=== PATIENT | male | born 1990 | race Caucasian/White ===

== ENCOUNTER 2016-03-08 18:49 | Emergency (ER) | payer OTHER ==
[2016-03-08] MEDS ORDERED: ONDANSETRON 4MG/2ML VIAL (J2405) As Ordered ONE (20:47)
[2016-03-08] MEDS ORDERED: MORPHINE 4 MG/ML 1ML SYRINGE As Ordered ONE (20:47)
[2016-03-08 21:07] LABS: BASO % 0.3 % (0.0-1.0); EOS % 0.5 % (0.0-3.0); LARGE UNSTAINED CELL # 0.1 K/mm3 (0.0-0.4); LYMPH # 1.7 K/mm3 (1.5-6.5); LYMPH % 18.8 % (24.0-44.0); MEAN CORPUSCULAR HEMOGLOBIN 28.2 pg (27.0-33.0); MEAN CORPUSCULAR VOLUME 82.8 fl (80.0-96.0); MONO # 0.3 K/mm3 (0.0-0.8); MONO % 3.7 % (0.0-5.0); NEUTROPHILS % 75.7 % (36.0-66.0); PLATELET COUNT, AUTOMATED 220 k/mm3 (150-450); RED CELL DISTRIBUTION WIDTH 12.6 % (11.5-14.5); WHITE BLOOD COUNT 9.2 K/mm3 (4.0-10.0)
[2016-03-08 21:28] LABS: ANION GAP 11 MEQ/L (8-16); BLOOD UREA NITROGEN 12 MG/DL (7-18); CALCIUM LEVEL 9.4 MG/DL (8.5-10.1); CARBON DIOXIDE LEVEL 24 MEQ/L (21-32); CHLORIDE LEVEL 105 MEQ/L (98-107); CREATININE FOR GFR 1.17 MG/DL (0.70-1.30); GLOMERULAR FILTRATION RATE > 60.0 (>60); GLUCOSE, FASTING 96 MG/DL (70-105); POTASSIUM SERUM 4.1 MEQ/L (3.5-5.1); SODIUM LEVEL 140 MEQ/L (136-145)
--- NOTE | 2016-03-08 23:11 | EDDOCDS ---
Physician Documentation [facility] Name: Xu Larios Age: 25 yrs Sex: Male : 1990 Arrival Date: 03/08/2016 Time: 18:49 Bed I5 / M5 [facility] Disposition: 03/08/16 23:03 Discharged to Home/Self Care. Impression: Intervertebral disc disorders with radiculopathy, thoracic region. - Condition is Stable. - Discharge Instructions: Herniated Disk, Thoracic Strain. - Prescriptions for Tylenol- Codeine #3 300-30 mg Oral Tablet - take 1 tablet by ORAL route every 6 hours As needed MDD: 4 tabs; 30 tablet. - Medication Reconciliation, Local Pharmacy Hours form. - Follow [facility]: [facility] [place]; When: Call to arrange an appointment; Reason: Recheck today's complaints, Continuance of care. - Problem is new. - Symptoms are unchanged. Historical: - Allergies: no known allergies; - Home Meds: 1. Fish Oil Oral 1000 mg daily 2. gabapentin 800 mg oral tab 3 times per day 3. vitamin B2 1 tablet twice daily 4. Vitamin D3 1,000 unit oral tab twice a day - PMHx: chronic back pain; herniated discs; Hypertension; - PSHx: Knee surgery- Left; - Social history: Smoking status: Patient uses tobacco products, current every day smoker. No barriers to communication noted, The patient speaks fluent Azeri, Speaks appropriately for age. - Family history: Not pertinent. - : The pt / caregiver states he / she is not on anticoagulants. Home medication list is obtained from the patient. - Exposure Risk Screening:: None identified. Vital Signs: 03/08 18:51 BP 156 / 85; Pulse 86; Resp 18; Temp 97.4(O); Pulse Ox 100% on R/A; Weight 82.1 kg / dd6 181 lbs (R); Height 5 ft. 7 in. (170.18 cm) (R); Pain 8/10; 22:17 BP 127 / 66; Pulse 82; Resp 20 S; Pulse Ox 99% on R/A; Pain 7/10; ms2 23:07 BP 133 / 81; Pulse 88; Resp 18; Temp 96.8; Pulse Ox 97% ; Pain 7/10; ajs 18:51 Body Mass Index 28.35 (82.10 kg, 170.18 cm) dd6 MDM: 20:35 MRI Screening Tool - Place on chart, inform RN ordered. mo1 20:35 IV Saline Lock ordered. mo1 20:35 morphine 4 mg IVP once ordered. mo1 20:35 Ondansetron 4 mg IVP once ordered. mo1 20:36 -MRI-Spine, Thoracic with contrast Ordered. EDMS 20:36 CBC with Diff Ordered. EDMS 20:36 BMP Ordered. EDMS 20:42 Financial registration complete. gb 20:43 MRI Screening Tool - Place on chart, inform RN complete. ajs 20:48 [place] [place] Payment Agreement was scanned into [employer] and attached to record. gb 21:35 BMP Reviewed. mo1 21:35 CBC with Diff Reviewed. mo1 21:49 Diazepam 5 mg IVP once ordered. mo1 Administered Medications: 21:01 Drug: Ondansetron 4 mg [ondansetron HCl 2 mg/mL intravenous solution (2 mL)] Route: ms18 IVP; Site: left antecubital; 21:02 Drug: morphine 4 mg [morphine 4 mg/mL intravenous cartridge (1 mL)] Route: IVP; Site: ms18 left antecubital; 22:08 Drug: Diazepam 5 mg [diazepam 5 mg/mL injection syringe (1 mL)] Route: IVP; Site: left ms2 antecubital; Signatures: Dispatcher [employer] EDMS Ashanti Virgen, Anca Bowens RN RN iris3 Kendra Thacker Michael, PA PA mo1 Angela Beebe RN RN ms18 Jame Meyers RN RN nn1 Devyn Chen RN ms2 The chart was reviewed and I authenticate all verbal orders and agree with the evaluation and treatment provided.Attachments: 20:48 [facility] Payment Agreement gb MTDD
--- NOTE | 2016-03-08 23:11 | EDDOCDS ---
Nurse's Notes [facility] Name: Xu Larios Age: 25 yrs Sex: Male : 1990 Arrival Date: 03/08/2016 Time: 18:49 Bed I5 / M5 [facility] Diagnosis: Intervertebral disc disorders with radiculopathy, thoracic region Presentation: 03/08 18:53 Presenting complaint: Patient states: severe mid back pain. Had injections today at [facility]. Adult Sepsis Screening: The patient does not have new or worsening altered mentation. Patient's respiratory rate is less than 22. Systolic blood pressure is greater than 100. Patient has a qSOFA score of 0- Negative Sepsis Screen. Suicide/Homicide risk assessment- the patient denies having any suicidal and/or homicidal ideations and does not present with any other emotional, behavioral or mental health complaints. 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 Transition of care: patient was received from Dr Guevara. 18:53 Acuity: KIM Level 4 kr3 18:53 Method Of Arrival: Walkin/Carried/Asstd kr3 Triage Assessment: 18:55 General: Appears uncomfortable, Behavior is appropriate for age, cooperative. Pain: kr3 Location: mid back area Pain currently is 8 out of 10 on a pain scale. HIV screening NA for this visit Offered previously. Neurological: Level of Consciousness is awake, alert. Respiratory: Respiratory effort is even, unlabored. Derm: Skin is normal. Musculoskeletal: Range of motion intact in all extremities. Historical: - Allergies: no known allergies; - Home Meds: 1. Fish Oil Oral 1000 mg daily 2. gabapentin 800 mg oral tab 3 times per day 3. vitamin B2 1 tablet twice daily 4. Vitamin D3 1,000 unit oral tab twice a day - PMHx: chronic back pain; herniated discs; Hypertension; - PSHx: Knee surgery- Left; - Social history: Smoking status: Patient uses tobacco products, current every day smoker. No barriers to communication noted, The patient speaks fluent [place] Citizen, Speaks appropriately for age. - Family history: Not pertinent. - : The pt / caregiver states he / she is not on anticoagulants. Home medication list is obtained from the patient. - Exposure Risk Screening:: None identified. Screenin:02 Screening information is obtained from the patient. Fall risk: No risks identified. ms18 Assistance ADL's: requires no assistance with activities of daily living. Abuse/DV Screen: The patient / caregiver reports he/she is: not in a situation that causes fear, pain or injury. Nutritional screening: No deficits noted. Advance Directives: There is no living will. home support is adequate. Assessment: 21:02 General: Appears in no apparent distress, uncomfortable, Behavior is appropriate for ms18 age, cooperative, pleasant. Pain: Location: back and mid back area Pain currently is 8 out of 10 on a pain scale. Neurological: Level of Consciousness is awake, alert, obeys commands, Oriented to person, place, time. Respiratory: No deficits noted. Derm: Skin is pink, warm & dry. Musculoskeletal: cervical spine is non-tender. Range of motion intact in all extremities. 22:16 Adult Sepsis Screening: The patient does not have new or worsening altered mentation. ms2 Patient's respiratory rate is less than 22. Systolic blood pressure is greater than 100. Patient has a qSOFA score of 0- Negative Sepsis Screen. General: Appears medicated for pain. Neurological: Level of Consciousness is awake, alert, obeys commands. Respiratory: Airway is patent Respiratory effort is even, unlabored, Respiratory pattern is regular, symmetrical. Derm: Skin is pink, warm & dry. Musculoskeletal: Range of motion intact in all extremities. Vital Signs: 18:51 BP 156 / 85; Pulse 86; Resp 18; Temp 97.4(O); Pulse Ox 100% on R/A; Weight 82.1 kg (R); dd6 Height 5 ft. 7 in. (170.18 cm) (R); Pain 8/10; 22:17 BP 127 / 66; Pulse 82; Resp 20 S; Pulse Ox 99% on R/A; Pain 7/10; ms2 23:07 BP 133 / 81; Pulse 88; Resp 18; Temp 96.8; Pulse Ox 97% ; Pain 7/10; ajs 18:51 Body Mass Index 28.35 (82.10 kg, 170.18 cm) dd6 Vitals: 18:51 Log In Time: March 08, 2016 at 18:49. dd6 ED Course: 18:50 Patient visited by Eriberto Turk, IQRA. dd6 18:50 Patient moved to Waiting dd6 18:[address] [facility] is Private Physician. dd6 18:52 Patient moved to Pre RCE dd6 18:54 Triage Initiated kr3 19:56 Patient moved to Triage 1 mdr 20:03 Patient visited by Nicole Lovell,DANIEL. ko2 20:05 Saeed Silva PA is PHCP. mo1 20:05 Petr Burns MD is Attending Physician. mo1 20:16 Patient visited by Saeed Silva PA. mo1 20:36 Patient moved to I5 / M5 ko2 20:48 [facility] Payment Agreement was scanned into [employer] and attached to record. gb 21:01 Patient visited by Angela Beebe RN. ms18 21:01 BMP Sent. ms18 21:01 CBC with Diff Sent. ms18 21:02 The patient / caregiver is instructed regarding the plan of care and ED course. ms18 Accompanied by Significant Other. Property :Personal belongings accompany Pt. 21:02 Inserted saline lock: 18 gauge in left antecubital area and blood collected. The ms18 patient tolerated the procedure well. 21:03 Patient moved to MRI ms18 21:46 Patient visited by Angela Beebe RN. ms18 21:46 Patient moved to I5 / M5 ms18 22:15 Patient visited by Devyn Chen,DANIEL. ms2 22:17 The patient / caregiver is instructed regarding the plan of care and ED course. ms2 22:17 IV is patent, is intact, is free of redness or swelling. solution is infusing as ms2 ordered. No procedures done that require assistance. 23:[address] [facility] is Referral Physician. mo1 23:08 Patient visited by Kendra Thacker. ajs Administered Medications: 21:01 Drug: Ondansetron 4 mg [ondansetron HCl 2 mg/mL intravenous solution (2 mL)] Route: ms18 IVP; Site: left antecubital; 21:02 Drug: morphine 4 mg [morphine 4 mg/mL intravenous cartridge (1 mL)] Route: IVP; Site: ms18 left antecubital; 22:08 Drug: Diazepam 5 mg [diazepam 5 mg/mL injection syringe (1 mL)] Route: IVP; Site: left ms2 antecubital; Order Results: Lab Order: CBC with Diff; SPEC'M 03/08/16 20:57 Test: WHITE BLOOD COUNT; Value: 9.2; Range: 4.0-10.0; Units: K/mm3; Status: F Test: RED BLOOD COUNT; Value: 5.82; Range: 4.30-6.10; Units: M/mm3; Status: F Test: HEMOGLOBIN; Value: 16.4; Range: 14.0-18.0; Units: g/dl; Status: F Test: HEMATOCRIT; Value: 48.2; Range: 42.0-52.0; Units: %; Status: F Test: MEAN CORPUSCULAR VOLUME; Value: 82.8; Range: 80.0-96.0; Units: fl; Status: F Test: MEAN CORPUSCULAR HEMOGLOBIN; Value: 28.2; Range: 27.0-33.0; Units: pg; Status: F Test: MEAN CORPUSCULAR HGB CONC; Value: 34.0; Range: 32.0-36.5; Units: g/dl; Status: F Test: RED CELL DISTRIBUTION WIDTH; Value: 12.6; Range: 11.5-14.5; Units: %; Status: F Test: PLATELET COUNT, AUTOMATED; Value: 220; Range: 150-450; Units: k/mm3; Status: F Test: NEUTROPHILS %; Value: 75.7; Range: 36.0-66.0; Abnormal: Above high normal; Units: %; Status: F Test: LYMPH %; Value: 18.8; Range: 24.0-44.0; Abnormal: Below low normal; Units: %; Status: F Test: MONO %; Value: 3.7; Range: 0.0-5.0; Units: %; Status: F Test: EOS %; Value: 0.5; Range: 0.0-3.0; Units: %; Status: F Test: BASO %; Value: 0.3; Range: 0.0-1.0; Units: %; Status: F Test: LARGE UNSTAINED CELL %; Value: 1.0; Range: 0.0-4.0; Units: %; Status: F Test: NEUTROPHILS #; Value: 7.0; Range: 1.8-7.7; Units: K/mm3; Status: F Test: LYMPH #; Value: 1.7; Range: 1.5-6.5; Units: K/mm3; Status: F Test: MONO #; Value: 0.3; Range: 0.0-0.8; Units: K/mm3; Status: F Test: EOS #; Value: 0.0; Range: 0.0-0.50; Units: K/mm3; Status: F Test: BASO #; Value: 0.0; Range: 0.0-0.2; Units: K/mm3; Status: F Test: LARGE UNSTAINED CELL #; Value: 0.1; Range: 0.0-0.4; Units: K/mm3; Status: F Lab Order: [facility]; SPEC'M 03/08/16 20:57 Test: GLUCOSE, FASTING; Value: 96; Range: 70-105; Units: MG/DL; Status: F Test: BLOOD UREA NITROGEN; Value: 12; Range: 7-18; Units: MG/DL; Status: F Test: CREATININE FOR GFR; Value: 1.17; Range: 0.70-1.30; Units: MG/DL; Status: F Test: GLOMERULAR FILTRATION RATE; Value: > 60.0; Range: >60; Status: F Test: SODIUM LEVEL; Value: 140; Range: 136-145; Units: MEQ/L; Status: F Test: POTASSIUM SERUM; Value: 4.1; Range: 3.5-5.1; Units: MEQ/L; Status: F Test: CHLORIDE LEVEL; Value: 105; Range: 98-107; Units: MEQ/L; Status: F Test: CARBON DIOXIDE LEVEL; Value: 24; Range: 21-32; Units: MEQ/L; Status: F Test: ANION GAP; Value: 11; Range: 8-16; Units: MEQ/L; Status: F Test: CALCIUM LEVEL; Value: 9.4; Range: 8.5-10.1; Units: MG/DL; Status: F Test Note: ; Units are mL/min/1.73 m2 Chronic Kidney Disease Staging per NKF: Stage I & II GFR >=60 Normal to Mildly Decreased Stage III GFR 30-59 Moderately Decreased Stage IV GFR 15-29 Severely Decreased Stage V GFR <15 Very Little GFR Left ESRD GFR <15 on [employer] DEAN Outcome: 23:03 Discharge ordered by Provider. mo1 23:05 Discharge Assessment: Patient awake, alert and oriented x 3. No cognitive and/or nn1 functional deficits noted. Patient verbalized understanding of disposition instructions. patient administered narcotics - yes. Pt provided with safe discharge. MRI Study completed. Property :Personal belongings accompany Pt. 23:10 The following High Risk Discharge criteria are identified: None. Discharged to home nn1 ambulatory, with significant other. Condition: stable. 23:10 Patient left the ED. nn1 Signatures: Devyn Chen,RN RN ms2 Ashanti Virgen, Reg Reg gb Anca Teresa RN RN kr3 Eriberto Turk, TECHNICAL SERVICES SPECIALIST TECHNICAL SERVICES SPECIALIST dd6 Kendra Thacker Michael, PA PA mo1 Nicole Lovell,RN RN ko2 Angela Beebe RN RN ms18 Jame MeyersRN RN nn1 Osmar Arenas, TECHNICAL SERVICES SPECIALIST TECHNICAL SERVICES SPECIALIST mdr MTDD
--- NOTE | 2016-03-09 08:21 | REPUSA ---
MRI of the thoracic spine without contrast Clinical statement: Pain status post epidural today. Technique: Multiecho multiplanar MRI images of the thoracic spine were obtained without administratio n of contrast. No comparison is available. Findings: The thoracic vertebral bodies are in satisfactory position and alignment. No fractures or d islocations are demonstrated. The bone marrow appears unremarkable. Intervertebral disc spaces are we ll maintained. There is no evidence of disc herniation or protrusion. The neural foramen are patent. The facet joints are intact. There is minimal soft tissue inflammatory changes in the posterior subcu taneous tissues at the level of T11. The remaining surrounding soft tissues are within normal limits. Impression: Grossy unremarkable MRI examination of the thoracic spine. No evidence of a hematoma is a ppreciated.
--- NOTE | 2016-03-11 00:11 | EDDOCDS ---
Physician Documentation [facility] Name: Xu Larios Age: 25 yrs Sex: Male : 1990 Arrival Date: 03/08/2016 Time: 18:49 Bed I5 / M5 [facility] Disposition: 03/08/16 23:03 Discharged to Home/Self Care. Impression: Intervertebral disc disorders with radiculopathy, thoracic region. - Condition is Stable. - Discharge Instructions: Herniated Disk, Thoracic Strain. - Prescriptions for Tylenol- Codeine #3 300-30 mg Oral Tablet - take 1 tablet by ORAL route every 6 hours As needed MDD: 4 tabs; 30 tablet. - Medication Reconciliation, Local Pharmacy Hours form. - [facility] [place]; When: Call to arrange an appointment; Reason: Recheck today's complaints, Continuance of care. - Problem is new. - Symptoms are unchanged. Historical: - Allergies: no known allergies; - Home Meds: 1. Fish Oil Oral 1000 mg daily 2. gabapentin 800 mg oral tab 3 times per day 3. vitamin B2 1 tablet twice daily 4. Vitamin D3 1,000 unit oral tab twice a day - PMHx: chronic back pain; herniated discs; Hypertension; - PSHx: Knee surgery- Left; - Social history: Smoking status: Patient uses tobacco products, current every day smoker. No barriers to communication noted, The patient speaks fluent [place]arag[place], Speaks appropriately for age. - Family history: Not pertinent. - : The pt / caregiver states he / she is not on anticoagulants. Home medication list is obtained from the patient. - Exposure Risk Screening:: None identified. Vital Signs: 03/08 18:51 BP 156 / 85; Pulse 86; Resp 18; Temp 97.4(O); Pulse Ox 100% on R/A; Weight 82.1 kg / dd6 181 lbs (R); Height 5 ft. 7 in. (170.18 cm) (R); Pain 8/10; 22:17 BP 127 / 66; Pulse 82; Resp 20 S; Pulse Ox 99% on R/A; Pain 7/10; ms2 23:07 BP 133 / 81; Pulse 88; Resp 18; Temp 96.8; Pulse Ox 97% ; Pain 7/10; ajs 18:51 Body Mass Index 28.35 (82.10 kg, 170.18 cm) dd6 MDM: 20:35 MRI Screening Tool - Place on chart, inform RN ordered. mo1 20:35 IV Saline Lock ordered. mo1 20:35 morphine 4 mg IVP once ordered. mo1 20:35 Ondansetron 4 mg IVP once ordered. mo1 20:36 -MRI-Spine, Thoracic with contrast Ordered. EDMS 20:36 CBC with Diff Ordered. EDMS 20:36 BMP Ordered. EDMS 20:42 Financial registration complete. gb 20:43 MRI Screening Tool - Place on chart, inform RN complete. ajs 20:48 [facility] Payment Agreement was scanned into [employer] and attached to record. gb 21:35 BMP Reviewed. mo1 21:35 CBC with Diff Reviewed. mo1 21:49 Diazepam 5 mg IVP once ordered. mo1 03/09 02:26 T-Sheet-- Draft Copy was scanned into [employer] and attached to record. hs2 Administered Medications: 03/08 21:01 Drug: Ondansetron 4 mg [ondansetron HCl 2 mg/mL intravenous solution (2 mL)] Route: ms18 IVP; Site: left antecubital; 21:02 Drug: morphine 4 mg [morphine 4 mg/mL intravenous cartridge (1 mL)] Route: IVP; Site: ms18 left antecubital; 22:08 Drug: Diazepam 5 mg [diazepam 5 mg/mL injection syringe (1 mL)] Route: IVP; Site: left ms2 antecubital; Signatures: Dispatcher [employer] EDMS Ashanti Virgen, Reg Reg gb Anca Teresa RN RN iris3 Kendra Thacker Michael, PA PA mo1 Angela Beebe RN RN ms18 Jame Meyers RN RN nn1 Lora Potter, Reg Reg hs2 Devyn Chen RN ms2 The chart was reviewed and I authenticate all verbal orders and agree with the evaluation and treatment provided.Attachments: 20:48 [facility] Payment Agreement gb 03/09 02:26 T-Sheet-- Draft Copy hs2 Chart Complete MTDD
--- NOTE | 2016-03-11 00:11 | EDDOCDS ---
Physician Documentation [facility] Name: Xu Larios Age: 25 yrs Sex: Male : 1990 Arrival Date: 03/08/2016 Time: 18:49 Bed I5 / M5 [facility] Disposition: 03/08/16 23:03 Discharged to Home/Self Care. Impression: Intervertebral disc disorders with radiculopathy, thoracic region. - Condition is Stable. - Discharge Instructions: Herniated Disk, Thoracic Strain. - Prescriptions for Tylenol- Codeine #3 300-30 mg Oral Tablet - take 1 tablet by ORAL route every 6 hours As needed MDD: 4 tabs; 30 tablet. - Medication Reconciliation, Local Pharmacy Hours form. - [facility]: [facility] [place]; When: Call to arrange an appointment; Reason: Recheck today's complaints, Continuance of care. - Problem is new. - Symptoms are unchanged. Historical: - Allergies: no known allergies; - Home Meds: 1. Fish Oil Oral 1000 mg daily 2. gabapentin 800 mg oral tab 3 times per day 3. vitamin B2 1 tablet twice daily 4. Vitamin D3 1,000 unit oral tab twice a day - PMHx: chronic back pain; herniated discs; Hypertension; - PSHx: Knee surgery- Left; - Social history: Smoking status: Patient uses tobacco products, current every day smoker. No barriers to communication noted, The patient speaks fluent [place]ib[place]ian, Speaks appropriately for age. - Family history: Not pertinent. - : The pt / caregiver states he / she is not on anticoagulants. Home medication list is obtained from the patient. - Exposure Risk Screening:: None identified. Vital Signs: 03/08 18:51 BP 156 / 85; Pulse 86; Resp 18; Temp 97.4(O); Pulse Ox 100% on R/A; Weight 82.1 kg / dd6 181 lbs (R); Height 5 ft. 7 in. (170.18 cm) (R); Pain 8/10; 22:17 BP 127 / 66; Pulse 82; Resp 20 S; Pulse Ox 99% on R/A; Pain 7/10; ms2 23:07 BP 133 / 81; Pulse 88; Resp 18; Temp 96.8; Pulse Ox 97% ; Pain 7/10; ajs 18:51 Body Mass Index 28.35 (82.10 kg, 170.18 cm) dd6 MDM: 20:35 MRI Screening Tool - Place on chart, inform RN ordered. mo1 20:35 IV Saline Lock ordered. mo1 20:35 morphine 4 mg IVP once ordered. mo1 20:35 Ondansetron 4 mg IVP once ordered. mo1 20:36 -MRI-Spine, Thoracic with contrast Ordered. EDMS 20:36 CBC with Diff Ordered. EDMS 20:36 BMP Ordered. EDMS 20:42 Financial registration complete. gb 20:43 MRI Screening Tool - Place on chart, inform RN complete. ajs 20:48 [facility] [place] Payment Agreement was scanned into [employer] and attached to record. gb 21:35 BMP Reviewed. mo1 21:35 CBC with Diff Reviewed. mo1 21:49 Diazepam 5 mg IVP once ordered. mo1 03/09 02:26 T-Sheet-- Draft Copy was scanned into [employer] and attached to record. hs2 Administered Medications: 03/08 21:01 Drug: Ondansetron 4 mg [ondansetron HCl 2 mg/mL intravenous solution (2 mL)] Route: ms18 IVP; Site: left antecubital; 21:02 Drug: morphine 4 mg [morphine 4 mg/mL intravenous cartridge (1 mL)] Route: IVP; Site: ms18 left antecubital; 22:08 Drug: Diazepam 5 mg [diazepam 5 mg/mL injection syringe (1 mL)] Route: IVP; Site: left ms2 antecubital; Signatures: Dispatcher [employer] EDMS Ashanti Virgen, Reg Reg gb Anca Teresa RN RN iris3 Kendra Thacker Michael, PA PA mo1 Angela Beebe RN RN ms18 Jame Meyers RN RN nn1 Lora Potter, Reg Reg hs2 Devyn Chen RN ms2 The chart was reviewed and I authenticate all verbal orders and agree with the evaluation and treatment provided.Attachments: 20:48 [facility] Payment Agreement gb 03/09 02:26 T-Sheet-- Draft Copy hs2 Chart Complete MTDD
--- NOTE | 2016-03-11 00:11 | EDDOCDS ---
Nurse's Notes [facility] Name: Xu Larios Age: 25 yrs Sex: Male : 1990 Arrival Date: 03/08/2016 Time: 18:49 Bed I5 / M5 Private [facility] Diagnosis: Intervertebral disc disorders with radiculopathy, thoracic region Presentation: 03/08 18:53 Presenting complaint: Patient states: severe mid back pain. Had injections today at [address] [place] doctor. Adult Sepsis Screening: The patient does not have new or worsening altered mentation. Patient's respiratory rate is less than 22. Systolic blood pressure is greater than 100. Patient has a qSOFA score of 0- Negative Sepsis Screen. Suicide/Homicide risk assessment- the patient denies having any suicidal and/or homicidal ideations and does not present with any other emotional, behavioral or mental health complaints. 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 Transition of care: patient was received from Dr Guevara. 18:53 Acuity: KIM Level 4 kr3 18:53 Method Of Arrival: Walkin/Carried/Asstd kr3 Triage Assessment: 18:55 General: Appears uncomfortable, Behavior is appropriate for age, cooperative. Pain: kr3 Location: mid back area Pain currently is 8 out of 10 on a pain scale. HIV screening NA for this visit Offered previously. Neurological: Level of Consciousness is awake, alert. Respiratory: Respiratory effort is even, unlabored. Derm: Skin is normal. Musculoskeletal: Range of motion intact in all extremities. Historical: - Allergies: no known allergies; - Home Meds: 1. Fish Oil Oral 1000 mg daily 2. gabapentin 800 mg oral tab 3 times per day 3. vitamin B2 1 tablet twice daily 4. Vitamin D3 1,000 unit oral tab twice a day - PMHx: chronic back pain; herniated discs; Hypertension; - PSHx: Knee surgery- Left; - Social history: Smoking status: Patient uses tobacco products, current every day smoker. No barriers to communication noted, The patient speaks fluent Kos[place], Speaks appropriately for age. - Family history: Not pertinent. - : The pt / caregiver states he / she is not on anticoagulants. Home medication list is obtained from the patient. - Exposure Risk Screening:: None identified. Screenin:02 Screening information is obtained from the patient. Fall risk: No risks identified. ms18 Assistance ADL's: requires no assistance with activities of daily living. Abuse/DV Screen: The patient / caregiver reports he/she is: not in a situation that causes fear, pain or injury. Nutritional screening: No deficits noted. Advance Directives: There is no living will. home support is adequate. Assessment: 21:02 General: Appears in no apparent distress, uncomfortable, Behavior is appropriate for ms18 age, cooperative, pleasant. Pain: Location: back and mid back area Pain currently is 8 out of 10 on a pain scale. Neurological: Level of Consciousness is awake, alert, obeys commands, Oriented to person, place, time. Respiratory: No deficits noted. Derm: Skin is pink, warm & dry. Musculoskeletal: cervical spine is non-tender. Range of motion intact in all extremities. 22:16 Adult Sepsis Screening: The patient does not have new or worsening altered mentation. ms2 Patient's respiratory rate is less than 22. Systolic blood pressure is greater than 100. Patient has a qSOFA score of 0- Negative Sepsis Screen. General: Appears medicated for pain. Neurological: Level of Consciousness is awake, alert, obeys commands. Respiratory: Airway is patent Respiratory effort is even, unlabored, Respiratory pattern is regular, symmetrical. Derm: Skin is pink, warm & dry. Musculoskeletal: Range of motion intact in all extremities. Vital Signs: 18:51 BP 156 / 85; Pulse 86; Resp 18; Temp 97.4(O); Pulse Ox 100% on R/A; Weight 82.1 kg (R); dd6 Height 5 ft. 7 in. (170.18 cm) (R); Pain 8/10; 22:17 BP 127 / 66; Pulse 82; Resp 20 S; Pulse Ox 99% on R/A; Pain 7/10; ms2 23:07 BP 133 / 81; Pulse 88; Resp 18; Temp 96.8; Pulse Ox 97% ; Pain 7/10; ajs 18:51 Body Mass Index 28.35 (82.10 kg, 170.18 cm) dd6 Vitals: 18:51 Log In Time: March 08, 2016 at 18:49. dd6 ED Course: 18:50 Patient visited by Eriberto Turk, IQRA. dd6 18:50 Patient moved to Waiting dd6 18:51 [facility] is Private Physician. dd6 18:52 Patient moved to Pre RCE dd6 18:54 Triage Initiated kr3 19:56 Patient moved to Triage 1 mdr 20:03 Patient visited by Nicole Lovell,DANIEL. ko2 20:05 Saeed Silva PA is PHCP. mo1 20:05 Petr Burns MD is Attending Physician. mo1 20:16 Patient visited by Saeed Silva PA. mo1 20:36 Patient moved to I5 / M5 ko2 20:48 [facility] Payment Agreement was scanned into [place] [facility] and attached to record. gb 21:01 Patient visited by Angela Beebe RN. ms18 21:01 BMP Sent. ms18 21:01 CBC with Diff Sent. ms18 21:02 The patient / caregiver is instructed regarding the plan of care and ED course. ms18 Accompanied by Significant Other. Property :Personal belongings accompany Pt. 21:02 Inserted saline lock: 18 gauge in left antecubital area and blood collected. The ms18 patient tolerated the procedure well. 21:03 Patient moved to MRI ms18 21:46 Patient visited by Angela Beebe RN. ms18 21:46 Patient moved to I5 / M5 ms18 22:15 Patient visited by Devyn Chen,DANIEL. ms2 22:17 The patient / caregiver is instructed regarding the plan of care and ED course. ms2 22:17 IV is patent, is intact, is free of redness or swelling. solution is infusing as ms2 ordered. No procedures done that require assistance. 23:02 [facility] is Referral Physician. mo1 23:08 Patient visited by Kendra Thacker. ajs 03/09 02:26 T-Sheet-- Draft Copy was scanned into [facility] and attached to record. hs2 08:43 -MRI-Spine, Thoracic with contrast Returned. EDMS Administered Medications: 03/08 21:01 Drug: Ondansetron 4 mg [ondansetron HCl 2 mg/mL intravenous solution (2 mL)] Route: ms18 IVP; Site: left antecubital; 21:02 Drug: morphine 4 mg [morphine 4 mg/mL intravenous cartridge (1 mL)] Route: IVP; Site: ms18 left antecubital; 22:08 Drug: Diazepam 5 mg [diazepam 5 mg/mL injection syringe (1 mL)] Route: IVP; Site: left ms2 antecubital; Order Results: Lab Order: CBC with Diff; SPEC'M 03/08/16 20:57 Test: WHITE BLOOD COUNT; Value: 9.2; Range: 4.0-10.0; Units: K/mm3; Status: F Test: RED BLOOD COUNT; Value: 5.82; Range: 4.30-6.10; Units: M/mm3; Status: F Test: HEMOGLOBIN; Value: 16.4; Range: 14.0-18.0; Units: g/dl; Status: F Test: HEMATOCRIT; Value: 48.2; Range: 42.0-52.0; Units: %; Status: F Test: MEAN CORPUSCULAR VOLUME; Value: 82.8; Range: 80.0-96.0; Units: fl; Status: F Test: MEAN CORPUSCULAR HEMOGLOBIN; Value: 28.2; Range: 27.0-33.0; Units: pg; Status: F Test: MEAN CORPUSCULAR HGB CONC; Value: 34.0; Range: 32.0-36.5; Units: g/dl; Status: F Test: RED CELL DISTRIBUTION WIDTH; Value: 12.6; Range: 11.5-14.5; Units: %; Status: F Test: PLATELET COUNT, AUTOMATED; Value: 220; Range: 150-450; Units: k/mm3; Status: F Test: NEUTROPHILS %; Value: 75.7; Range: 36.0-66.0; Abnormal: Above high normal; Units: %; Status: F Test: LYMPH %; Value: 18.8; Range: 24.0-44.0; Abnormal: Below low normal; Units: %; Status: F Test: MONO %; Value: 3.7; Range: 0.0-5.0; Units: %; Status: F Test: EOS %; Value: 0.5; Range: 0.0-3.0; Units: %; Status: F Test: BASO %; Value: 0.3; Range: 0.0-1.0; Units: %; Status: F Test: LARGE UNSTAINED CELL %; Value: 1.0; Range: 0.0-4.0; Units: %; Status: F Test: NEUTROPHILS #; Value: 7.0; Range: 1.8-7.7; Units: K/mm3; Status: F Test: LYMPH #; Value: 1.7; Range: 1.5-6.5; Units: K/mm3; Status: F Test: MONO #; Value: 0.3; Range: 0.0-0.8; Units: K/mm3; Status: F Test: EOS #; Value: 0.0; Range: 0.0-0.50; Units: K/mm3; Status: F Test: BASO #; Value: 0.0; Range: 0.0-0.2; Units: K/mm3; Status: F Test: LARGE UNSTAINED CELL #; Value: 0.1; Range: 0.0-0.4; Units: K/mm3; Status: F Lab Order: [facility]; SPEC'M 03/08/16 20:57 Test: GLUCOSE, FASTING; Value: 96; Range: 70-105; Units: MG/DL; Status: F Test: BLOOD UREA NITROGEN; Value: 12; Range: 7-18; Units: MG/DL; Status: F Test: CREATININE FOR GFR; Value: 1.17; Range: 0.70-1.30; Units: MG/DL; Status: F Test: GLOMERULAR FILTRATION RATE; Value: > 60.0; Range: >60; Status: F Test: SODIUM LEVEL; Value: 140; Range: 136-145; Units: MEQ/L; Status: F Test: POTASSIUM SERUM; Value: 4.1; Range: 3.5-5.1; Units: MEQ/L; Status: F Test: CHLORIDE LEVEL; Value: 105; Range: 98-107; Units: MEQ/L; Status: F Test: CARBON DIOXIDE LEVEL; Value: 24; Range: 21-32; Units: MEQ/L; Status: F Test: ANION GAP; Value: 11; Range: 8-16; Units: MEQ/L; Status: F Test: CALCIUM LEVEL; Value: 9.4; Range: 8.5-10.1; Units: MG/DL; Status: F Test Note: ; Units are mL/min/1.73 m2 Chronic Kidney Disease Staging per NKF: Stage I & II GFR >=60 Normal to Mildly Decreased Stage III GFR 30-59 Moderately Decreased Stage IV GFR 15-29 Severely Decreased Stage V GFR <15 Very Little GFR Left ESRD GFR <15 on INTENSIVE CARE MEDICINE SPECIALIST Radiology Order: -MRI-Spine, Thoracic with contrast Test: -MRI-Spine, Thoracic with contrast REASON FOR EXAMINATION: r/o epidural hematoma t-spine; ; MRI of the thoracic spine without contrast; Clinical statement: Pain status post epidural today.; Technique: Multiecho multiplanar MRI images of the thoracic spine were obtained without administratio; n of contrast.; No comparison is available.; Findings: The thoracic vertebral bodies are in satisfactory position and alignment. No fractures or d; islocations are demonstrated. The bone marrow appears unremarkable. Intervertebral disc spaces are we; ll maintained. There is no evidence of disc herniation or protrusion. The neural foramen are patent.; The facet joints are intact. There is minimal soft tissue inflammatory changes in the posterior subcu; taneous tissues at the level of T11. The remaining surrounding soft tissues are within normal limits.; ; Impression: Grossy unremarkable MRI examination of the thoracic spine. No evidence of a hematoma is a; ppreciated.; ; Outcome: 23:03 Discharge ordered by Provider. mo1 23:05 Discharge Assessment: Patient awake, alert and oriented x 3. No cognitive and/or nn1 functional deficits noted. Patient verbalized understanding of disposition instructions. patient administered narcotics - yes. Pt provided with safe discharge. MRI Study completed. Property :Personal belongings accompany Pt. 23:10 The following High Risk Discharge criteria are identified: None. Discharged to home nn1 ambulatory, with significant other. Condition: stable. 23:10 Patient left the ED. nn1 Signatures: Dispatcher [employer] EDMS Devyn ChenRN RN ms2 Ashanti Virgen, Reg Reg gb Anca TeresaRN RN kr3 Eriberto Turk, EVIDENCE SPECIALIST EVIDENCE SPECIALIST dd6 Kendra Thacker Michael, PA PA mo1 Nicole Lovell RN RN ko2 Angela Beebe RN RN ms18 Jame Meyers RN RN nn1 Osmar Arenas, EVIDENCE SPECIALIST EVIDENCE SPECIALIST mdr Lora Potter, Reg Reg hs2 Chart Complete MTDD
== END 2016-03-08 23:10 | disposition home or self-care (01) ==
LOC: M ED 18:49
DX: M54.12 Radiculopathy, cervical region (principal); M54.14 Radiculopathy, thoracic region; I10 Essential (primary) hypertension; Z98.890 Other specified postprocedural states; G89.29 Other chronic pain; Z79.899 Other long term (current) drug therapy; F17.210 Nicotine dependence, cigarettes, uncomplicated
CPT/HCPCS: 36415; 72147; 80048; 85025; 96374; 96375; 99284; A9576; J2405; J3360

== ENCOUNTER 2016-03-16 20:27 | Emergency (ER) | payer OTHER ==
[2016-03-16] MEDS ORDERED: MORPHINE 4 MG/ML 1ML SYRINGE As Ordered ONE ×3 (21:17→23:59)
[2016-03-16 21:46] LABS: BASO % 0.5 % (0.0-1.0); EOS # 0.1 K/mm3 (0.0-0.50); EOS % 1.5 % (0.0-3.0); LARGE UNSTAINED CELL # 0.1 K/mm3 (0.0-0.4); LARGE UNSTAINED CELL % 1.5 % (0.0-4.0); LYMPH # 3.1 K/mm3 (1.5-6.5); LYMPH % 35.9 % (24.0-44.0); MEAN CORPUSCULAR HEMOGLOBIN 27.9 pg (27.0-33.0); MEAN CORPUSCULAR HGB CONC 33.4 g/dl (32.0-36.5); MEAN CORPUSCULAR VOLUME 83.4 fl (80.0-96.0); MONO # 0.6 K/mm3 (0.0-0.8); MONO % 6.7 % (0.0-5.0); NEUTROPHILS # 4.4 K/mm3 (1.8-7.7); NEUTROPHILS % 53.9 % (36.0-66.0); PLATELET COUNT, AUTOMATED 257 k/mm3 (150-450); RED CELL DISTRIBUTION WIDTH 12.9 % (11.5-14.5); WHITE BLOOD COUNT 8.2 K/mm3 (4.0-10.0)
[2016-03-16 22:05] LABS: ANION GAP 10 MEQ/L (8-16); BLOOD UREA NITROGEN 13 MG/DL (7-18); CALCIUM LEVEL 9.8 MG/DL (8.5-10.1); CARBON DIOXIDE LEVEL 25 MEQ/L (21-32); CHLORIDE LEVEL 104 MEQ/L (98-107); CREATININE FOR GFR 1.15 MG/DL (0.70-1.30); GLOMERULAR FILTRATION RATE > 60.0 (>60); GLUCOSE, FASTING 91 MG/DL (70-105); POTASSIUM SERUM 3.9 MEQ/L (3.5-5.1); SODIUM LEVEL 139 MEQ/L (136-145)
[2016-03-16 22:07] LABS: ERYTHROCYTE SEDIMENTATION RATE 1 mm/hr (0-15)
--- NOTE | 2016-03-17 00:30 | REPUSA ---
CLINICAL HISTORY: Back pain. TECHNIQUE: Fast spin echo T2 and spin echo T1 sequences were obtained in axial and sagittal planes. FINDINGS: There is moderate chronic compression fracture of T8. Associated Schmorl's node formation. There is mild chronic compression fracture of T9. Associated Schmorl's node formation. The visualized osseous elements are intact and in normal alignment with no evidence of fracture or di slocation. The marrow signals are within normal limits. The visualized posterior elements are normal and the thoracic curvature is well maintained. The thoracic cord is of uniform signal intensity witho ut evidence of focal expansion. There is mild multilevel spondylosis. This is demonstrated by disc dehydration. Small anterior osteop hytes are seen. At T1-T2 level, no evidence of significant disk herniation or bulge. Canal and foramina are patent. At T2-T3 level, no evidence of significant disk herniation or bulge. Canal and foramina are patent. At T3-T4 level, no evidence of significant disk herniation or bulge. Canal and foramina are patent. At T4-T5 level, no evidence of significant disk herniation or bulge. Canal and foramina are patent. At T5-T6 level, no evidence of significant disk herniation or bulge. Canal and foramina are patent. At T6-T7 level, no evidence of significant disk herniation or bulge. Canal and foramina are patent. At T7-T8 level, no evidence of significant disk herniation or bulge. Canal and foramina are patent. At T8-T9 level, no evidence of significant disk herniation or bulge. Canal and foramina are patent. At T9-T10 level, no evidence of significant disk herniation or bulge. Canal and foramina are patent. At T10-T11 level, no evidence of significant disk herniation or bulge. Canal and foramina are patent. At T11-T12 level, no evidence of significant disk herniation or bulge. Canal and foramina are patent. IMPRESSION: 1. Mild multilevel spondylosis. 2. No evidence for central canal or foraminal stenosis at any level. 3. Chronic compression fractures of T8 and T9. Thank you for your kind referral of this patient.
[2016-03-17] MEDS ORDERED: MORPHINE 4 MG/ML 1ML SYRINGE As Ordered ONE (00:42)
--- NOTE | 2016-03-17 00:50 | REPUSA ---
CLINICAL HISTORY: Paresthesia after spinal injection. TECHNIQUE: Fast spin echo T2 and spin echo T1 sequences were obtained in axial and sagittal planes. P ost stent images were obtained. FINDINGS: The visualized osseous elements are intact with no evidence of fracture or spondylolisthesis. The mar row signals are within normal limits. There is straightening of normal lordotic curvature, compatible with muscle spasm. The conus medullaris and cauda equina are within normal limits. There is evidence of mild multilevel disc dehydration. Evaluation of individual levels reveals the following: At L5-S1, broad based disk bulge is present. Canal and neural foramina remain patent. At L4-L5, broad based disk bulge is present. Canal and neural foramina remain patent. At L3-L4, there is no disk herniation or bulge. Canal and neural foramina remain patent. At L2-L3, there is no disk herniation or bulge. Canal and neural foramina remain patent. At L1-L2, there is no disk herniation or bulge. Canal and neural foramina remain patent. No evidence of intracanalicular hematoma. IMPRESSION: 1. Straightening of normal lordotic curvature, compatible with muscle spasm. 2. Broad based disk bulges at L4-L5 and L5-S1. Thank you for your kind referral of this patient.
[2016-03-17] MEDS ORDERED: methylPREDNISolone INJ 125 MG/2 ML VIAL (J2930) As Ordered ONE (01:50)
[2016-03-17] MEDS ORDERED: OXYCODONE/APAP 5MG/325MG(BULK) 1 TAB TAB As Ordered ONE (01:51)
--- NOTE | 2016-03-17 02:19 | EDDOCDS ---
Nurse's Notes [facility] Name: Xu Larios Age: 25 yrs Sex: Male : 1990 Arrival Date: 03/16/2016 Time: 20:27 Bed 6 Private MD: TNDinesh MEIER Diagnosis: Low back pain;Radiculopathy, lumbosacral region Presentation: 03/16 20:33 Presenting complaint: Patient states: Had spinal injections last week and came to ED jo3 for severe pain that started after injections. Continuing to have pain and when he sits for extended period of time, everything from the waist down goes numb. Also, when pt stands too quickly, feels a popping sensation and pt will get an erection that has lasted up to an hour. Has had episodes of not being able to void. Acute neurological deficits are present. Mechanism of Injury: No Mechanism of Injury. Adult Sepsis Screening: The patient does not have new or worsening altered mentation. Patient's respiratory rate is less than 22. Systolic blood pressure is greater than 100. Patient has a qSOFA score of 0- Negative Sepsis Screen. Suicide/Homicide risk assessment- the patient denies having any suicidal and/or homicidal ideations and does not present with any other emotional, behavioral or mental health complaints. 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 Transition of care: patient was not received from another setting of care. 20:33 Acuity: KIM Level 3 jo3 20:33 Method Of Arrival: Walkin/Carried/Asstd jo3 20:56 Acute neurological deficits are present. The charge nurse has been notified. The jo3 patient has been moved to a treatment area. Triage Assessment: 20:41 General: Appears in no apparent distress, Behavior is appropriate for age, cooperative. jo3 Pain: Pain currently is 8 out of 10 on a pain scale. At worst was 9.5 out of 10 on a pain scale. HIV screening NA for this visit Offered previously. Neurological: Level of Consciousness is Oriented to. Historical: - Allergies: No known drug Allergies; - Home Meds: 1. Fish Oil Oral 1000 mg daily 2. gabapentin 800 mg Oral tab 3 times per day 3. vitamin B2 1 tablet twice daily 4. Vitamin D3 1,000 unit oral tab twice a day 5. acetaminophen-codeine 325-30 mg Oral cap every 6 hours 6. zolmitriptan 2.5 mg oral tab 1 tab every 8 hours as needed - PMHx: chronic back pain; herniated discs; Hypertension; - PSHx: Knee surgery- Left; - Social history: Smoking status: Patient uses tobacco products, light tobacco smoker. No barriers to communication noted, The patient speaks fluent [place], Speaks appropriately for age. - Family history: Not pertinent. - : The pt / caregiver states he / she is not on anticoagulants. Home medication list is obtained from the patient. - Exposure Risk Screening:: None identified. Screenin/02 00:00 Screening information is obtained from the patient. Fall risk: No risks identified. cf2 Assistance ADL's: requires no assistance with activities of daily living. Abuse/DV Screen: The patient / caregiver reports he/she is: not in a situation that causes fear, pain or injury. Nutritional screening: No deficits noted. Advance Directives: Further advance directive information is declined. home support is adequate. Assessment: 00:00 Adult Sepsis Screening: The patient does not have new or worsening altered mentation. cf2 Patient's respiratory rate is less than 22. Systolic blood pressure is greater than 100. Patient has a qSOFA score of 0- Negative Sepsis Screen. General: Appears in no apparent distress, comfortable, Behavior is appropriate for age, cooperative. Pain: Location: back. Neurological: No deficits noted. Reports dizziness, numbness paresthesias. EENT: No deficits noted. Cardiovascular: No deficits noted. Respiratory: No deficits noted. GI: No deficits noted. : No deficits noted. Derm: No deficits noted. Musculoskeletal: No deficits noted. Injury Description: No known injury. Vital Signs: 03/16 20:29 BP 159 / 99; Pulse 100; Resp 18 S; Temp 97.4(O); Pulse Ox 97% on R/A; Weight 82.1 kg gr2 (R); Height 5 ft. 7 in. (170.18 cm) (R); Pain 6/10; 03/17 00:00 BP 132 / 78; Pulse 88; Resp 18; Temp 98.8; Pulse Ox 99% on R/A; Pain 5/10; cf2 02:17 BP 126 / 82; Pulse 78; Resp 16; Temp 98.0; Pulse Ox 100% on R/A; Pain 3/10; cf2 03/16 20:29 Body Mass Index 28.35 (82.10 kg, 170.18 cm) gr2 Vitals: 03/16 20:29 Log In Time: March 16, 2016 at 20:29. gr2 ED Course: 20:28 Patient visited by Melony Polanco. gr2 20:28 Patient moved to Waiting gr2 20:29 [facility], Dinesh Lloyd is Private Physician. gr2 20:32 Patient visited by Melony Polanco. gr2 20:32 Patient moved to Pre RCE gr2 20:39 Triage Initiated jo3 20:42 Patient visited by Shelby Hammond RN. jo3 20:45 Marcy Vides RN is Primary Nurse. lf1 20:45 Primary Nurse role handed off by Marcy Vides RN cf2 20:45 Ashleigh Calvert RN is Primary Nurse. cf2 20:45 Patient visited by Ashleigh Calvert RN. cf2 20:45 Patient moved to 6 lf1 20:57 Rasheed Wang DO is Attending Physician. mm11 20:57 Patient visited by Rasheed Wang DO. mm11 20:58 Patient visited by Ashleigh Calvert RN. cf2 21:09 Patient visited by Ashleigh Calvert RN. cf2 21:12 Patient visited by Ashleigh Calvert RN. cf2 21:13 Patient visited by Rasheed Wang DO. mm11 21:15 Patient visited by Ashleigh Calvert RN. cf2 21:38 ESR Sent. cf2 21:38 CRP Sent. cf2 21:38 BMP Sent. cf2 21:38 CBC with Diff Sent. cf2 21:47 [facility] Payment Agreement was scanned into [email or web address] and attached to record. zo 21:53 Patient visited by Ashleigh Calvert RN. cf2 21:57 Patient moved to MRI jlm 22:22 Patient visited by Ashleigh Calvert RN. cf2 23:59 Patient visited by Ashleigh Calvert RN. cf2 03/17 00:00 Marcy Vides RN is Primary Nurse. kb5 00:00 Patient moved to 6 kb5 00:00 The patient / caregiver is instructed regarding the plan of care and ED course. Patient cf2 has correct armband on for positive identification. Placed in gown. Bed in low position. Call light in reach. Side rails up X 1. Side rails up X2. Property :Personal belongings accompany Pt. Door closed. Noise minimized. Visitors limited. Lights dimmed. Moved to private room. Oral care given. Verbal reassurance given. Warm blanket given. Pillow given. Head of bed elevated. 00:00 Inserted saline lock: 20 gauge in left hand. cf2 00:29 Patient visited by Ashleigh Calvert RN. cf2 00:35 MRI T SPINE W/O FOLL WITH CON Returned. EDMS 01:10 Patient visited by Ashleigh Calvert RN. cf2 01:11 -MRI-Spine, Lumbar w/o foll by with con Returned. EDMS 01:47 [facility] ([facility]) is Referral Physician. mm11 02:12 Patient visited by Ashleigh Calvert RN. cf2 02:14 Patient visited by Ashleigh Calvert RN. cf2 02:17 Discontinued lock No redness/swelling at site. No procedures done that require cf2 assistance. Administered Medications: 03/16 21:20 Drug: morphine 4 mg [morphine 4 mg/mL intravenous cartridge (1 mL)] Route: IVP; Site: cf2 left antecubital; 21:53 Drug: morphine 4 mg [morphine 4 mg/mL intravenous cartridge (1 mL)] Route: IVP; Site: cf2 left antecubital; 03/17 02:14 Follow up: Response: Pain is decreased cf2 00:00 Drug: morphine 4 mg [morphine 4 mg/mL intravenous cartridge (1 mL)] Route: IVP; Site: cf2 left antecubital; 00:47 Drug: morphine 4 mg [morphine 4 mg/mL intravenous cartridge (1 mL)] Route: IVP; Site: cf2 left antecubital; 02:13 Follow up: Response: Pain is decreased cf2 01:55 Drug: Diazepam 5 mg [diazepam 5 mg/mL injection syringe (1 mL)] Route: IVP; Site: left cf2 antecubital; 02:13 Follow up: Response: Pain is decreased cf2 01:55 Drug: oxyCODONE-acetaminophen 4 pack 1 packets [oxycodone-acetaminophen 5 mg-325 mg cf2 tablet (1 tabs)] {Co-Signature: tm5 (Thais Ennis RN).} Route: PO; 02:14 Follow up: Response: Pt left department before re-evaluation is appropriate cf2 02:12 Drug: Solu-MEDROL 125 mg [Solu-Medrol 500 mg intravenous solution (125 mg)] Route: IVP; cf2 Site: left antecubital; 02:13 Follow up: Response: No significant change. cf2 Order Results: Lab Order: CBC with Diff; SPEC'M 03/16/16 21:35 Test: WHITE BLOOD COUNT; Value: 8.2; Range: 4.0-10.0; Units: K/mm3; Status: F Test: RED BLOOD COUNT; Value: 5.84; Range: 4.30-6.10; Units: M/mm3; Status: F Test: HEMOGLOBIN; Value: 16.3; Range: 14.0-18.0; Units: g/dl; Status: F Test: HEMATOCRIT; Value: 48.7; Range: 42.0-52.0; Units: %; Status: F Test: MEAN CORPUSCULAR VOLUME; Value: 83.4; Range: 80.0-96.0; Units: fl; Status: F Test: MEAN CORPUSCULAR HEMOGLOBIN; Value: 27.9; Range: 27.0-33.0; Units: pg; Status: F Test: MEAN CORPUSCULAR HGB CONC; Value: 33.4; Range: 32.0-36.5; Units: g/dl; Status: F Test: RED CELL DISTRIBUTION WIDTH; Value: 12.9; Range: 11.5-14.5; Units: %; Status: F Test: PLATELET COUNT, AUTOMATED; Value: 257; Range: 150-450; Units: k/mm3; Status: F Test: NEUTROPHILS %; Value: 53.9; Range: 36.0-66.0; Units: %; Status: F Test: LYMPH %; Value: 35.9; Range: 24.0-44.0; Units: %; Status: F Test: MONO %; Value: 6.7; Range: 0.0-5.0; Abnormal: Above high normal; Units: %; Status: F Test: EOS %; Value: 1.5; Range: 0.0-3.0; Units: %; Status: F Test: BASO %; Value: 0.5; Range: 0.0-1.0; Units: %; Status: F Test: LARGE UNSTAINED CELL %; Value: 1.5; Range: 0.0-4.0; Units: %; Status: F Test: NEUTROPHILS #; Value: 4.4; Range: 1.8-7.7; Units: K/mm3; Status: F Test: LYMPH #; Value: 3.1; Range: 1.5-6.5; Units: K/mm3; Status: F Test: MONO #; Value: 0.6; Range: 0.0-0.8; Units: K/mm3; Status: F Test: EOS #; Value: 0.1; Range: 0.0-0.50; Units: K/mm3; Status: F Test: BASO #; Value: 0.0; Range: 0.0-0.2; Units: K/mm3; Status: F Test: LARGE UNSTAINED CELL #; Value: 0.1; Range: 0.0-0.4; Units: K/mm3; Status: F Lab Order: [facility]; SPEC'M 03/16/16 21:35 Test: GLUCOSE, FASTING; Value: 91; Range: 70-105; Units: MG/DL; Status: F Test: BLOOD UREA NITROGEN; Value: 13; Range: 7-18; Units: MG/DL; Status: F Test: CREATININE FOR GFR; Value: 1.15; Range: 0.70-1.30; Units: MG/DL; Status: F Test: GLOMERULAR FILTRATION RATE; Value: > 60.0; Range: >60; Status: F Test: SODIUM LEVEL; Value: 139; Range: 136-145; Units: MEQ/L; Status: F Test: POTASSIUM SERUM; Value: 3.9; Range: 3.5-5.1; Units: MEQ/L; Status: F Test: CHLORIDE LEVEL; Value: 104; Range: 98-107; Units: MEQ/L; Status: F Test: CARBON DIOXIDE LEVEL; Value: 25; Range: 21-32; Units: MEQ/L; Status: F Test: ANION GAP; Value: 10; Range: 8-16; Units: MEQ/L; Status: F Test: CALCIUM LEVEL; Value: 9.8; Range: 8.5-10.1; Units: MG/DL; Status: F Test Note: ; Units are mL/min/1.73 m2 Chronic Kidney Disease Staging per NKF: Stage I & II GFR >=60 Normal to Mildly Decreased Stage III GFR 30-59 Moderately Decreased Stage IV GFR 15-29 Severely Decreased Stage V GFR <15 Very Little GFR Left ESRD GFR <15 on ENGINEERING SYSTEMS ANALYST Lab Order: CRP; SPEC'M 03/16/16 21:35 Test: C REACTIVE PROTEIN QUANTITATIV; Value: < 0.30; Range: 0.00-0.30; Units: MG/DL; Status: F Lab Order: ESR; SPEC'M 03/16/16 21:35 Test: ERYTHROCYTE SEDIMENTATION RATE; Value: 1; Range: 0-15; Units: mm/hr; Status: F Radiology Order: -MRI-Spine, Lumbar w/o foll by with con Test: -MRI-Spine, Lumbar w/o foll by with con REASON FOR EXAMINATION: parethesia after spinal injections; ; CLINICAL HISTORY: Paresthesia after spinal injection.; TECHNIQUE: Fast spin echo T2 and spin echo T1 sequences were obtained in axial and sagittal planes. P; ost stent images were obtained.; FINDINGS:; The visualized osseous elements are intact with no evidence of fracture or spondylolisthesis. The mar; row signals are within normal limits. There is straightening of normal lordotic curvature, compatible; with muscle spasm. The conus medullaris and cauda equina are within normal limits.; There is evidence of mild multilevel disc dehydration.; Evaluation of individual levels reveals the following:; At L5-S1, broad based disk bulge is present. Canal and neural foramina remain patent.; At L4-L5, broad based disk bulge is present. Canal and neural foramina remain patent.; At L3-L4, there is no disk herniation or bulge. Canal and neural foramina remain patent.; At L2-L3, there is no disk herniation or bulge. Canal and neural foramina remain patent.; At L1-L2, there is no disk herniation or bulge. Canal and neural foramina remain patent.; No evidence of intracanalicular hematoma.; IMPRESSION:; 1. Straightening of normal lordotic curvature, compatible with muscle spasm.; 2. Broad based disk bulges at L4-L5 and L5-S1.; Thank you for your kind referral of this patient.; ; Radiology Order: MRI T SPINE W/O FOLL WITH CON Test: MRI T SPINE W/O FOLL WITH CON REASON FOR EXAMINATION: parethesia after spinal injections; ; CLINICAL HISTORY: Back pain.; TECHNIQUE: Fast spin echo T2 and spin echo T1 sequences were obtained in axial and sagittal planes.; FINDINGS:; There is moderate chronic compression fracture of T8. Associated Schmorl's node formation.; There is mild chronic compression fracture of T9. Associated Schmorl's node formation.; The visualized osseous elements are intact and in normal alignment with no evidence of fracture or di; slocation. The marrow signals are within normal limits. The visualized posterior elements are normal; and the thoracic curvature is well maintained. The thoracic cord is of uniform signal intensity witho; ut evidence of focal expansion.; There is mild multilevel spondylosis. This is demonstrated by disc dehydration. Small anterior osteop; hytes are seen.; At T1-T2 level, no evidence of significant disk herniation or bulge. Canal and foramina are patent.; At T2-T3 level, no evidence of significant disk herniation or bulge. Canal and foramina are patent.; At T3-T4 level, no evidence of significant disk herniation or bulge. Canal and foramina are patent.; At T4-T5 level, no evidence of significant disk herniation or bulge. Canal and foramina are patent.; At T5-T6 level, no evidence of significant disk herniation or bulge. Canal and foramina are patent.; At T6-T7 level, no evidence of significant disk herniation or bulge. Canal and foramina are patent.; At T7-T8 level, no evidence of significant disk herniation or bulge. Canal and foramina are patent.; At T8-T9 level, no evidence of significant disk herniation or bulge. Canal and foramina are patent.; At T9-T10 level, no evidence of significant disk herniation or bulge. Canal and foramina are patent.; At T10-T11 level, no evidence of significant disk herniation or bulge. Canal and foramina are patent.; ; At T11-T12 level, no evidence of significant disk herniation or bulge. Canal and foramina are patent.; ; IMPRESSION:; 1. Mild multilevel spondylosis.; 2. No evidence for central canal or foraminal stenosis at any level.; 3. Chronic compression fractures of T8 and T9.; Thank you for your kind referral of this patient.; ; Outcome: 00:00 Discharge Assessment: Patient awake, alert and oriented x 3. No cognitive and/or cf2 functional deficits noted. Patient verbalized understanding of disposition instructions. Patient awake and alert. Oriented to person, place and time. patient administered narcotics - yes. Pt provided with safe discharge. The following High Risk Discharge criteria are identified: None. Discharged to home via wheelchair, with significant other. Condition: good Condition: stable Condition: improved. Discharge instructions given to patient, significant other, Instructed on discharge instructions, medication usage, Demonstrated understanding of instructions, medications, Prescriptions given X 3. MRI Study completed. 01:48 Discharge ordered by Provider. mm11 02:18 Patient left the ED. cf2 Signatures: Dispatcher [employer] EDMS Shelby Hammond,RN RN jo3 Loly Miranda Kristopher, BOLT LABELER BOLT LABELER kb5 Jasmina Grimaldo RN RN lf1 Rasheed Wang DO DO mm11 Melony Polanco gr2 Reanna Prasad, Financial Service Professional Unit Ashleigh Wise,RN RN cf2 Thais Ennis RN tm5 MTDD
--- NOTE | 2016-03-17 02:19 | EDDOCDS ---
Physician Documentation [facility] Name: Xu Larios Age: 25 yrs Sex: Male : 1990 Arrival Date: 03/16/2016 Time: 20:27 Bed 6 Private MD: Dinesh GRANGER Disposition: 03/17/16 01:48 Discharged to Home/Self Care. Impression: Low back pain, Radiculopathy, lumbosacral region. - Condition is Stable. - Discharge Instructions: Back Pain, Adult, Lumbosacral Radiculopathy, Musculoskeletal Pain, Back Pain, Adult, [id number]. - Prescriptions for Percocet 5- 325 mg Oral Tablet - take 1 tablet by ORAL route every 6 hours As needed MDD: 4 tabs; 20 tablet. Valium 5 mg Oral Tablet - take 1 tablet by ORAL route every 8 hours As needed MDD: 3 tabs; 20 tablet. Prednisone 20 mg Oral Tablet - take 2 tablets by ORAL route once daily for 5 days; 10 tablet. - Local Pharmacy Hours, Medication Reconciliation form. - Follow up: [facility] ([facility]); When: 1 - 2 days; Reason: Continuance of care. - Problem is an ongoing problem. - Symptoms are unchanged. Historical: - Allergies: No known drug Allergies; - Home Meds: 1. Fish Oil Oral 1000 mg daily 2. gabapentin 800 mg Oral tab 3 times per day 3. vitamin B2 1 tablet twice daily 4. Vitamin D3 1,000 unit oral tab twice a day 5. acetaminophen-codeine 325-30 mg Oral cap every 6 hours 6. zolmitriptan 2.5 mg oral tab 1 tab every 8 hours as needed - PMHx: chronic back pain; herniated discs; Hypertension; - PSHx: Knee surgery- Left; - Social history: Smoking status: Patient uses tobacco products, light tobacco smoker. No barriers to communication noted, The patient speaks fluent [place], Speaks appropriately for age. - Family history: Not pertinent. - : The pt / caregiver states he / she is not on anticoagulants. Home medication list is obtained from the patient. - Exposure Risk Screening:: None identified. Vital Signs: 03/16 20:29 BP 159 / 99; Pulse 100; Resp 18 S; Temp 97.4(O); Pulse Ox 97% on R/A; Weight 82.1 kg / gr2 181 lbs (R); Height 5 ft. 7 in. (170.18 cm) (R); Pain 6/10; 03/17 00:00 BP 132 / 78; Pulse 88; Resp 18; Temp 98.8; Pulse Ox 99% on R/A; Pain 5/10; cf2 02:17 BP 126 / 82; Pulse 78; Resp 16; Temp 98.0; Pulse Ox 100% on R/A; Pain 3/10; cf2 02 20:29 Body Mass Index 28.35 (82.10 kg, 170.18 cm) gr2 MDM: 03/16 21:14 IV Saline Lock ordered. mm11 21:14 morphine 4 mg IVP every 30 minutes; Document pain score/vitals after each dose (Hold if mm11 SBP < 90mmHg) x2 ordered. 21:14 MRI Screening Tool - Place on chart, inform RN ordered. mm11 21:15 CBC with Diff Ordered. EDMS 21:15 BMP Ordered. EDMS 21:15 CRP Ordered. EDMS 21:15 ESR Ordered. EDMS 21:15 -MRI-Spine, Lumbar w/o foll by with con Ordered. EDMS 21:20 MRI Screening Tool - Place on chart, inform RN complete. kb5 21:45 Financial registration complete. zo 21:47 [facility] Payment Agreement was scanned into [employer] and attached to record. zo 22:24 MRI T SPINE W/O FOLL WITH CON Ordered. EDMS 22:58 CBC with Diff Reviewed. mm11 22:58 BMP Reviewed. mm11 22:58 CRP Reviewed. mm11 22:58 ESR Reviewed. mm11 23:56 morphine 4 mg IVP every 30 minutes; Document pain score/vitals after each dose (Hold if mm11 SBP < 90mmHg) x2 ordered. 03/17 01:47 Solu-MEDROL 125 mg IVP once ordered. mm11 01:47 Diazepam 5 mg IVP once ordered. mm11 01:47 oxyCODONE-acetaminophen 4 pack 5 mg-325 mg 1 packets PO once; Dispense with pt, take as mm11 per instruction on package ordered. Administered Medications: 03/16 21:20 Drug: morphine 4 mg [morphine 4 mg/mL intravenous cartridge (1 mL)] Route: IVP; Site: cf2 left antecubital; 21:53 Drug: morphine 4 mg [morphine 4 mg/mL intravenous cartridge (1 mL)] Route: IVP; Site: cf2 left antecubital; 02 02:14 Follow up: Response: Pain is decreased cf2 00:00 Drug: morphine 4 mg [morphine 4 mg/mL intravenous cartridge (1 mL)] Route: IVP; Site: cf2 left antecubital; 00:47 Drug: morphine 4 mg [morphine 4 mg/mL intravenous cartridge (1 mL)] Route: IVP; Site: cf2 left antecubital; 02:13 Follow up: Response: Pain is decreased cf2 01:55 Drug: Diazepam 5 mg [diazepam 5 mg/mL injection syringe (1 mL)] Route: IVP; Site: left cf2 antecubital; 02:13 Follow up: Response: Pain is decreased cf2 01:55 Drug: oxyCODONE-acetaminophen 4 pack 1 packets [oxycodone-acetaminophen 5 mg-325 mg cf2 tablet (1 tabs)] {Co-Signature: tm5 (Thais Ennis RN).} Route: PO; 02:14 Follow up: Response: Pt left department before re-evaluation is appropriate cf2 02:12 Drug: Solu-MEDROL 125 mg [Solu-Medrol 500 mg intravenous solution (125 mg)] Route: IVP; cf2 Site: left antecubital; 02:13 Follow up: Response: No significant change. cf2 Signatures: Dispatcher [employer] EDShelby Mcrae RN RN jo3 Loly Miranda Kristopher, METAL SHEET ROLLER OPERATOR METAL SHEET ROLLER OPERATOR kb5 Rasheed Wang DO DO mm11 Ashleigh Calvert RN RN cf2 Thais Ennis RN tm5 The chart was reviewed and I authenticate all verbal orders and agree with the evaluation and treatment provided.Corrections: (The following items were deleted from the chart) 03/16 22:24 21:16 MRI-Spine,Thoracic without con+MR ordered. EDMS EDMS 22:24 22:03 MRI-Spine, Thoracic with con+MR ordered. EDMS EDMS 22:24 22:04 MRI-Spine,Thoracic without con+MR ordered. EDMS EDMS Attachments: 21:47 [facility] Payment Agreement zo MTDD
--- NOTE | 2016-03-19 03:19 | EDDOCDS ---
Physician Documentation [facility] Name: Xu Larios Age: 25 yrs Sex: Male : 1990 Arrival Date: 03/16/2016 Time: 20:27 Bed 6 Private MD: Dinesh GRANGER Disposition: 03/17/16 01:48 Discharged to Home/Self Care. Impression: Low back pain, Radiculopathy, lumbosacral region. - Condition is Stable. - Discharge Instructions: Back Pain, Adult, Lumbosacral Radiculopathy, Musculoskeletal Pain, Back Pain, Adult, [id number]. - Prescriptions for Percocet 5- 325 mg Oral Tablet - take 1 tablet by ORAL route every 6 hours As needed MDD: 4 tabs; 20 tablet. Valium 5 mg Oral Tablet - take 1 tablet by ORAL route every 8 hours As needed MDD: 3 tabs; 20 tablet. Prednisone 20 mg Oral Tablet - take 2 tablets by ORAL route once daily for 5 days; 10 tablet. - Local Pharmacy Hours, Medication Reconciliation form. - Follow up: [facility] ([facility]); When: 1 - 2 days; Reason: Continuance of care. - Problem is an ongoing problem. - Symptoms are unchanged. Historical: - Allergies: No known drug Allergies; - Home Meds: 1. Fish Oil Oral 1000 mg daily 2. gabapentin 800 mg Oral tab 3 times per day 3. vitamin B2 1 tablet twice daily 4. Vitamin D3 1,000 unit oral tab twice a day 5. acetaminophen-codeine 325-30 mg Oral cap every 6 hours 6. zolmitriptan 2.5 mg oral tab 1 tab every 8 hours as needed - PMHx: chronic back pain; herniated discs; Hypertension; - PSHx: Knee surgery- Left; - Social history: Smoking status: Patient uses tobacco products, light tobacco smoker. No barriers to communication noted, The patient speaks fluent Macedonian, Speaks appropriately for age. - Family history: Not pertinent. - : The pt / caregiver states he / she is not on anticoagulants. Home medication list is obtained from the patient. - Exposure Risk Screening:: None identified. Vital Signs: 03/16 20:29 BP 159 / 99; Pulse 100; Resp 18 S; Temp 97.4(O); Pulse Ox 97% on R/A; Weight 82.1 kg / gr2 181 lbs (R); Height 5 ft. 7 in. (170.18 cm) (R); Pain 6/10; 03/17 00:00 BP 132 / 78; Pulse 88; Resp 18; Temp 98.8; Pulse Ox 99% on R/A; Pain 5/10; cf2 02:17 BP 126 / 82; Pulse 78; Resp 16; Temp 98.0; Pulse Ox 100% on R/A; Pain 3/10; cf2 02 20:29 Body Mass Index 28.35 (82.10 kg, 170.18 cm) gr2 MDM: 03/16 21:14 IV Saline Lock ordered. mm11 21:14 morphine 4 mg IVP every 30 minutes; Document pain score/vitals after each dose (Hold if mm11 SBP < 90mmHg) x2 ordered. 21:14 MRI Screening Tool - Place on chart, inform RN ordered. mm11 21:15 CBC with Diff Ordered. EDMS 21:15 BMP Ordered. EDMS 21:15 CRP Ordered. EDMS 21:15 ESR Ordered. EDMS 21:15 -MRI-Spine, Lumbar w/o foll by with con Ordered. EDMS 21:20 MRI Screening Tool - Place on chart, inform RN complete. kb5 21:45 Financial registration complete. zo 21:47 [facility] Payment Agreement was scanned into [employer] and attached to record. zo 22:24 MRI T SPINE W/O FOLL WITH CON Ordered. EDMS 22:58 CBC with Diff Reviewed. mm11 22:58 BMP Reviewed. mm11 22:58 CRP Reviewed. mm11 22:58 ESR Reviewed. mm11 23:56 morphine 4 mg IVP every 30 minutes; Document pain score/vitals after each dose (Hold if mm11 SBP < 90mmHg) x2 ordered. 03/17 01:47 Solu-MEDROL 125 mg IVP once ordered. mm11 01:47 Diazepam 5 mg IVP once ordered. mm11 01:47 oxyCODONE-acetaminophen 4 pack 5 mg-325 mg 1 packets PO once; Dispense with pt, take as mm11 per instruction on package ordered. 12:50 T-Sheet-- Draft Copy was scanned into io[employer] and attached to record. gb Administered Medications: 03/16 21:20 Drug: morphine 4 mg [morphine 4 mg/mL intravenous cartridge (1 mL)] Route: IVP; Site: cf2 left antecubital; 21:53 Drug: morphine 4 mg [morphine 4 mg/mL intravenous cartridge (1 mL)] Route: IVP; Site: cf2 left antecubital; 03/17 02:14 Follow up: Response: Pain is decreased cf2 00:00 Drug: morphine 4 mg [morphine 4 mg/mL intravenous cartridge (1 mL)] Route: IVP; Site: cf2 left antecubital; 00:47 Drug: morphine 4 mg [morphine 4 mg/mL intravenous cartridge (1 mL)] Route: IVP; Site: cf2 left antecubital; 02:13 Follow up: Response: Pain is decreased cf2 01:55 Drug: Diazepam 5 mg [diazepam 5 mg/mL injection syringe (1 mL)] Route: IVP; Site: left cf2 antecubital; 02:13 Follow up: Response: Pain is decreased cf2 01:55 Drug: oxyCODONE-acetaminophen 4 pack 1 packets [oxycodone-acetaminophen 5 mg-325 mg cf2 tablet (1 tabs)] {Co-Signature: [id number] (Thais Ennis RN).} Route: PO; 02:14 Follow up: Response: Pt left department before re-evaluation is appropriate cf2 02:12 Drug: Solu-MEDROL 125 mg [Solu-Medrol 500 mg intravenous solution (125 mg)] Route: IVP; cf2 Site: left antecubital; 02:13 Follow up: Response: No significant change. cf2 Signatures: Dispatcher Med[employer] EDMS Ashanti Virgen, Zoran Reg Shelby NavarroRN RN jo3 Loly Miranda Kristopher, WELDING ROD COATER WELDING ROD COATER kb5 Rasheed Wang DO DO mm11 Ashleigh CalvertRN RN cf2 Thais Ennis RN tm5 The chart was reviewed and I authenticate all verbal orders and agree with the evaluation and treatment provided.Corrections: (The following items were deleted from the chart) 03/16 22:24 21:16 MRI-Spine,Thoracic without con+MR ordered. EDMS EDMS : 22:03 MRI-Spine, Thoracic with con+MR ordered. EDMS EDMS 22:24 22:04 MRI-Spine,Thoracic without con+MR ordered. EDMS EDMS Attachments: 21:47 [facility] [place] Payment Agreement zo 03/17 12:50 T-Sheet-- Draft Copy gb Chart Complete MTDD
--- NOTE | 2016-03-19 03:19 | EDDOCDS ---
Physician Documentation [facility] Name: Xu Larios Age: 25 yrs Sex: Male : 1990 Arrival Date: 03/16/2016 Time: 20:27 Bed 6 Private MD: Dinesh GRANGER Disposition: 03/17/16 01:48 Discharged to Home/Self Care. Impression: Low back pain, Radiculopathy, lumbosacral region. - Condition is Stable. - Discharge Instructions: Back Pain, Adult, Lumbosacral Radiculopathy, Musculoskeletal Pain, Back Pain, Adult, [id number]. - Prescriptions for Percocet 5- 325 mg Oral Tablet - take 1 tablet by ORAL route every 6 hours As needed MDD: 4 tabs; 20 tablet. Valium 5 mg Oral Tablet - take 1 tablet by ORAL route every 8 hours As needed MDD: 3 tabs; 20 tablet. Prednisone 20 mg Oral Tablet - take 2 tablets by ORAL route once daily for 5 days; 10 tablet. - Local Pharmacy Hours, Medication Reconciliation form. - Follow up: [facility] ([facility]); When: 1 - 2 days; Reason: Continuance of care. - Problem is an ongoing problem. - Symptoms are unchanged. Historical: - Allergies: No known drug Allergies; - Home Meds: 1. Fish Oil Oral 1000 mg daily 2. gabapentin 800 mg Oral tab 3 times per day 3. vitamin B2 1 tablet twice daily 4. Vitamin D3 1,000 unit oral tab twice a day 5. acetaminophen-codeine 325-30 mg Oral cap every 6 hours 6. zolmitriptan 2.5 mg oral tab 1 tab every 8 hours as needed - PMHx: chronic back pain; herniated discs; Hypertension; - PSHx: Knee surgery- Left; - Social history: Smoking status: Patient uses tobacco products, light tobacco smoker. No barriers to communication noted, The patient speaks fluent Hebrew, Speaks appropriately for age. - Family history: Not pertinent. - : The pt / caregiver states he / she is not on anticoagulants. Home medication list is obtained from the patient. - Exposure Risk Screening:: None identified. Vital Signs: 03/16 20:29 BP 159 / 99; Pulse 100; Resp 18 S; Temp 97.4(O); Pulse Ox 97% on R/A; Weight 82.1 kg / gr2 181 lbs (R); Height 5 ft. 7 in. (170.18 cm) (R); Pain 6/10; 03/17 00:00 BP 132 / 78; Pulse 88; Resp 18; Temp 98.8; Pulse Ox 99% on R/A; Pain 5/10; cf2 02:17 BP 126 / 82; Pulse 78; Resp 16; Temp 98.0; Pulse Ox 100% on R/A; Pain 3/10; cf2 02 20:29 Body Mass Index 28.35 (82.10 kg, 170.18 cm) gr2 MDM: 03/16 21:14 IV Saline Lock ordered. mm11 21:14 morphine 4 mg IVP every 30 minutes; Document pain score/vitals after each dose (Hold if mm11 SBP < 90mmHg) x2 ordered. 21:14 MRI Screening Tool - Place on chart, inform RN ordered. mm11 21:15 CBC with Diff Ordered. EDMS 21:15 BMP Ordered. EDMS 21:15 CRP Ordered. EDMS 21:15 ESR Ordered. EDMS 21:15 -MRI-Spine, Lumbar w/o foll by with con Ordered. EDMS 21:20 MRI Screening Tool - Place on chart, inform RN complete. kb5 21:45 Financial registration complete. zo 21:47 [facility] Payment Agreement was scanned into [employer] and attached to record. zo 22:24 MRI T SPINE W/O FOLL WITH CON Ordered. EDMS 22:58 CBC with Diff Reviewed. mm11 22:58 BMP Reviewed. mm11 22:58 CRP Reviewed. mm11 22:58 ESR Reviewed. mm11 23:56 morphine 4 mg IVP every 30 minutes; Document pain score/vitals after each dose (Hold if mm11 SBP < 90mmHg) x2 ordered. 03/17 01:47 Solu-MEDROL 125 mg IVP once ordered. mm11 01:47 Diazepam 5 mg IVP once ordered. mm11 01:47 oxyCODONE-acetaminophen 4 pack 5 mg-325 mg 1 packets PO once; Dispense with pt, take as mm11 per instruction on package ordered. 12:50 T-Sheet-- Draft Copy was scanned into [employer] and attached to record. gb Administered Medications: 03/16 21:20 Drug: morphine 4 mg [morphine 4 mg/mL intravenous cartridge (1 mL)] Route: IVP; Site: cf2 left antecubital; 21:53 Drug: morphine 4 mg [morphine 4 mg/mL intravenous cartridge (1 mL)] Route: IVP; Site: cf2 left antecubital; 03/17 02:14 Follow up: Response: Pain is decreased cf2 00:00 Drug: morphine 4 mg [morphine 4 mg/mL intravenous cartridge (1 mL)] Route: IVP; Site: cf2 left antecubital; 00:47 Drug: morphine 4 mg [morphine 4 mg/mL intravenous cartridge (1 mL)] Route: IVP; Site: cf2 left antecubital; 02:13 Follow up: Response: Pain is decreased cf2 01:55 Drug: Diazepam 5 mg [diazepam 5 mg/mL injection syringe (1 mL)] Route: IVP; Site: left cf2 antecubital; 02:13 Follow up: Response: Pain is decreased cf2 01:55 Drug: oxyCODONE-acetaminophen 4 pack 1 packets [oxycodone-acetaminophen 5 mg-325 mg cf2 tablet (1 tabs)] {Co-Signature: tm5 (Thais Ennis RN).} Route: PO; 02:14 Follow up: Response: Pt left department before re-evaluation is appropriate cf2 02:12 Drug: Solu-MEDROL 125 mg [Solu-Medrol 500 mg intravenous solution (125 mg)] Route: IVP; cf2 Site: left antecubital; 02:13 Follow up: Response: No significant change. cf2 Signatures: Dispatcher [employer] EDMS Ashanti Virgen, Zoran Reg Shelby NavarroRN RN jo3 Loly Miranda Kristopher, RACK WORKER RACK WORKER kb5 Rasheed Wang DO DO mm11 Ashleigh CalvertRN RN cf2 Thais Ennis RN tm5 The chart was reviewed and I authenticate all verbal orders and agree with the evaluation and treatment provided.Corrections: (The following items were deleted from the chart) 03/16 22:24 21:16 MRI-Spine,Thoracic without con+MR ordered. EDMS EDMS : 22:03 MRI-Spine, Thoracic with con+MR ordered. EDMS EDMS 22:24 22:04 MRI-Spine,Thoracic without con+MR ordered. EDMS EDMS Attachments: 21:47 [facility] [place] zo 03/17 12:50 T-Sheet-- Draft Copy gb Chart Complete MTDD
--- NOTE | 2016-03-19 03:19 | EDDOCDS ---
Nurse's Notes [facility] Name: Xu Larios Age: 25 yrs Sex: Male : 1990 Arrival Date: 03/16/2016 Time: 20:27 Bed 6 Private MD: NMDinesh MEIER Diagnosis: Low back pain;Radiculopathy, lumbosacral region Presentation: 03/16 20:33 Presenting complaint: Patient states: Had spinal injections last week and came to ED jo3 for severe pain that started after injections. Continuing to have pain and when he sits for extended period of time, everything from the waist down goes numb. Also, when pt stands too quickly, feels a popping sensation and pt will get an erection that has lasted up to an hour. Has had episodes of not being able to void. Acute neurological deficits are present. Mechanism of Injury: No Mechanism of Injury. Adult Sepsis Screening: The patient does not have new or worsening altered mentation. Patient's respiratory rate is less than 22. Systolic blood pressure is greater than 100. Patient has a qSOFA score of 0- Negative Sepsis Screen. Suicide/Homicide risk assessment- the patient denies having any suicidal and/or homicidal ideations and does not present with any other emotional, behavioral or mental health complaints. 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 Transition of care: patient was not received from another setting of care. 20:33 Acuity: KIM Level 3 jo3 20:33 Method Of Arrival: Walkin/Carried/Asstd jo3 20:56 Acute neurological deficits are present. The charge nurse has been notified. The jo3 patient has been moved to a treatment area. Triage Assessment: 20:41 General: Appears in no apparent distress, Behavior is appropriate for age, cooperative. jo3 Pain: Pain currently is 8 out of 10 on a pain scale. At worst was 9.5 out of 10 on a pain scale. HIV screening NA for this visit Offered previously. Neurological: Level of Consciousness is Oriented to. Historical: - Allergies: No known drug Allergies; - Home Meds: 1. Fish Oil Oral 1000 mg daily 2. gabapentin 800 mg Oral tab 3 times per day 3. vitamin B2 1 tablet twice daily 4. Vitamin D3 1,000 unit oral tab twice a day 5. acetaminophen-codeine 325-30 mg Oral cap every 6 hours 6. zolmitriptan 2.5 mg oral tab 1 tab every 8 hours as needed - PMHx: chronic back pain; herniated discs; Hypertension; - PSHx: Knee surgery- Left; - Social history: Smoking status: Patient uses tobacco products, light tobacco smoker. No barriers to communication noted, The patient speaks fluent Ghanaian, Speaks appropriately for age. - Family history: Not pertinent. - : The pt / caregiver states he / she is not on anticoagulants. Home medication list is obtained from the patient. - Exposure Risk Screening:: None identified. Screenin/02 00:00 Screening information is obtained from the patient. Fall risk: No risks identified. cf2 Assistance ADL's: requires no assistance with activities of daily living. Abuse/DV Screen: The patient / caregiver reports he/she is: not in a situation that causes fear, pain or injury. Nutritional screening: No deficits noted. Advance Directives: Further advance directive information is declined. home support is adequate. Assessment: 00:00 Adult Sepsis Screening: The patient does not have new or worsening altered mentation. cf2 Patient's respiratory rate is less than 22. Systolic blood pressure is greater than 100. Patient has a qSOFA score of 0- Negative Sepsis Screen. General: Appears in no apparent distress, comfortable, Behavior is appropriate for age, cooperative. Pain: Location: back. Neurological: No deficits noted. Reports dizziness, numbness paresthesias. EENT: No deficits noted. Cardiovascular: No deficits noted. Respiratory: No deficits noted. GI: No deficits noted. : No deficits noted. Derm: No deficits noted. Musculoskeletal: No deficits noted. Injury Description: No known injury. Vital Signs: 03/16 20:29 BP 159 / 99; Pulse 100; Resp 18 S; Temp 97.4(O); Pulse Ox 97% on R/A; Weight 82.1 kg gr2 (R); Height 5 ft. 7 in. (170.18 cm) (R); Pain 6/10; 03/17 00:00 BP 132 / 78; Pulse 88; Resp 18; Temp 98.8; Pulse Ox 99% on R/A; Pain 5/10; cf2 02:17 BP 126 / 82; Pulse 78; Resp 16; Temp 98.0; Pulse Ox 100% on R/A; Pain 3/10; cf2 03/16 20:29 Body Mass Index 28.35 (82.10 kg, 170.18 cm) gr2 Vitals: 03/16 20:29 Log In Time: March 16, 2016 at 20:29. gr2 ED Course: 20:28 Patient visited by Melony Polanco. gr2 20:28 Patient moved to Waiting gr2 20:29 [facility], Dinesh Lloyd is Private Physician. gr2 20:32 Patient visited by Melony Polanco. gr2 20:32 Patient moved to Pre RCE gr2 20:39 Triage Initiated jo3 20:42 Patient visited by Shelby Hammond RN. jo3 20:45 Marcy Vides RN is Primary Nurse. lf1 20:45 Primary Nurse role handed off by Marcy Vides RN cf2 20:45 Ashleigh Calvert RN is Primary Nurse. cf2 20:45 Patient visited by Ashleigh Calvert RN. cf2 20:45 Patient moved to 6 lf1 20:57 Rasheed Wang DO is Attending Physician. mm11 20:57 Patient visited by Rasheed Wang DO. mm11 20:58 Patient visited by Ashleigh Calvert RN. cf2 21:09 Patient visited by Ashleigh Calvert RN. cf2 21:12 Patient visited by Ashleigh Calvert RN. cf2 21:13 Patient visited by Rasheed Wang DO. mm11 21:15 Patient visited by Ashleigh Calvert RN. cf2 21:38 ESR Sent. cf2 21:38 CRP Sent. cf2 21:38 BMP Sent. cf2 21:38 CBC with Diff Sent. cf2 21:47 [facility] Payment Agreement was scanned into [employer] and attached to record. zo 21:53 Patient visited by Ashleigh Calvert RN. cf2 21:57 Patient moved to MRI jlm 22:22 Patient visited by Ashleigh Calvert RN. cf2 23:59 Patient visited by Ashleigh Calvert RN. cf2 03/17 00:00 Marcy Vides RN is Primary Nurse. kb5 00:00 Patient moved to 6 kb5 00:00 The patient / caregiver is instructed regarding the plan of care and ED course. Patient cf2 has correct armband on for positive identification. Placed in gown. Bed in low position. Call light in reach. Side rails up X 1. Side rails up X2. Property :Personal belongings accompany Pt. Door closed. Noise minimized. Visitors limited. Lights dimmed. Moved to private room. Oral care given. Verbal reassurance given. Warm blanket given. Pillow given. Head of bed elevated. 00:00 Inserted saline lock: 20 gauge in left hand. cf2 00:29 Patient visited by Ashleigh Calvert RN. cf2 00:35 MRI T SPINE W/O FOLL WITH CON Returned. EDMS 01:10 Patient visited by Ashleigh Calvert RN. cf2 01:11 -MRI-Spine, Lumbar w/o foll by with con Returned. EDMS 01:47 [facility]) is Referral Physician. mm11 02:12 Patient visited by Ashleigh Calvert RN. cf2 02:14 Patient visited by Ashleigh Calvert RN. cf2 02:17 Discontinued lock No redness/swelling at site. No procedures done that require cf2 assistance. 12:50 T-Sheet-- Draft Copy was scanned into [employer] and attached to record. gb Administered Medications: 03/16 21:20 Drug: morphine 4 mg [morphine 4 mg/mL intravenous cartridge (1 mL)] Route: IVP; Site: cf2 left antecubital; 21:53 Drug: morphine 4 mg [morphine 4 mg/mL intravenous cartridge (1 mL)] Route: IVP; Site: cf2 left antecubital; 03/17 02:14 Follow up: Response: Pain is decreased cf2 00:00 Drug: morphine 4 mg [morphine 4 mg/mL intravenous cartridge (1 mL)] Route: IVP; Site: cf2 left antecubital; 00:47 Drug: morphine 4 mg [morphine 4 mg/mL intravenous cartridge (1 mL)] Route: IVP; Site: cf2 left antecubital; 02:13 Follow up: Response: Pain is decreased cf2 01:55 Drug: Diazepam 5 mg [diazepam 5 mg/mL injection syringe (1 mL)] Route: IVP; Site: left cf2 antecubital; 02:13 Follow up: Response: Pain is decreased cf2 01:55 Drug: oxyCODONE-acetaminophen 4 pack 1 packets [oxycodone-acetaminophen 5 mg-325 mg cf2 tablet (1 tabs)] {Co-Signature: tm5 (Thais Ennis RN).} Route: PO; 02:14 Follow up: Response: Pt left department before re-evaluation is appropriate cf2 02:12 Drug: Solu-MEDROL 125 mg [Solu-Medrol 500 mg intravenous solution (125 mg)] Route: IVP; cf2 Site: left antecubital; 02:13 Follow up: Response: No significant change. cf2 Order Results: Lab Order: CBC with Diff; SPEC'M 03/16/16 21:35 Test: WHITE BLOOD COUNT; Value: 8.2; Range: 4.0-10.0; Units: K/mm3; Status: F Test: RED BLOOD COUNT; Value: 5.84; Range: 4.30-6.10; Units: M/mm3; Status: F Test: HEMOGLOBIN; Value: 16.3; Range: 14.0-18.0; Units: g/dl; Status: F Test: HEMATOCRIT; Value: 48.7; Range: 42.0-52.0; Units: %; Status: F Test: MEAN CORPUSCULAR VOLUME; Value: 83.4; Range: 80.0-96.0; Units: fl; Status: F Test: MEAN CORPUSCULAR HEMOGLOBIN; Value: 27.9; Range: 27.0-33.0; Units: pg; Status: F Test: MEAN CORPUSCULAR HGB CONC; Value: 33.4; Range: 32.0-36.5; Units: g/dl; Status: F Test: RED CELL DISTRIBUTION WIDTH; Value: 12.9; Range: 11.5-14.5; Units: %; Status: F Test: PLATELET COUNT, AUTOMATED; Value: 257; Range: 150-450; Units: k/mm3; Status: F Test: NEUTROPHILS %; Value: 53.9; Range: 36.0-66.0; Units: %; Status: F Test: LYMPH %; Value: 35.9; Range: 24.0-44.0; Units: %; Status: F Test: MONO %; Value: 6.7; Range: 0.0-5.0; Abnormal: Above high normal; Units: %; Status: F Test: EOS %; Value: 1.5; Range: 0.0-3.0; Units: %; Status: F Test: BASO %; Value: 0.5; Range: 0.0-1.0; Units: %; Status: F Test: LARGE UNSTAINED CELL %; Value: 1.5; Range: 0.0-4.0; Units: %; Status: F Test: NEUTROPHILS #; Value: 4.4; Range: 1.8-7.7; Units: K/mm3; Status: F Test: LYMPH #; Value: 3.1; Range: 1.5-6.5; Units: K/mm3; Status: F Test: MONO #; Value: 0.6; Range: 0.0-0.8; Units: K/mm3; Status: F Test: EOS #; Value: 0.1; Range: 0.0-0.50; Units: K/mm3; Status: F Test: BASO #; Value: 0.0; Range: 0.0-0.2; Units: K/mm3; Status: F Test: LARGE UNSTAINED CELL #; Value: 0.1; Range: 0.0-0.4; Units: K/mm3; Status: F Lab Order: [facility]; SPEC'M 03/16/16 21:35 Test: GLUCOSE, FASTING; Value: 91; Range: 70-105; Units: MG/DL; Status: F Test: BLOOD UREA NITROGEN; Value: 13; Range: 7-18; Units: MG/DL; Status: F Test: CREATININE FOR GFR; Value: 1.15; Range: 0.70-1.30; Units: MG/DL; Status: F Test: GLOMERULAR FILTRATION RATE; Value: > 60.0; Range: >60; Status: F Test: SODIUM LEVEL; Value: 139; Range: 136-145; Units: MEQ/L; Status: F Test: POTASSIUM SERUM; Value: 3.9; Range: 3.5-5.1; Units: MEQ/L; Status: F Test: CHLORIDE LEVEL; Value: 104; Range: 98-107; Units: MEQ/L; Status: F Test: CARBON DIOXIDE LEVEL; Value: 25; Range: 21-32; Units: MEQ/L; Status: F Test: ANION GAP; Value: 10; Range: 8-16; Units: MEQ/L; Status: F Test: CALCIUM LEVEL; Value: 9.8; Range: 8.5-10.1; Units: MG/DL; Status: F Test Note: ; Units are mL/min/1.73 m2 Chronic Kidney Disease Staging per NKF: Stage I & II GFR >=60 Normal to Mildly Decreased Stage III GFR 30-59 Moderately Decreased Stage IV GFR 15-29 Severely Decreased Stage V GFR <15 Very Little GFR Left ESRD GFR <15 on OUTSIDE UPHOLSTERER Lab Order: CRP; SPEC'M 03/16/16 21:35 Test: C REACTIVE PROTEIN QUANTITATIV; Value: < 0.30; Range: 0.00-0.30; Units: MG/DL; Status: F Lab Order: ESR; SPEC'M 03/16/16 21:35 Test: ERYTHROCYTE SEDIMENTATION RATE; Value: 1; Range: 0-15; Units: mm/hr; Status: F Radiology Order: -MRI-Spine, Lumbar w/o foll by with con Test: -MRI-Spine, Lumbar w/o foll by with con REASON FOR EXAMINATION: parethesia after spinal injections; ; CLINICAL HISTORY: Paresthesia after spinal injection.; TECHNIQUE: Fast spin echo T2 and spin echo T1 sequences were obtained in axial and sagittal planes. P; ost stent images were obtained.; FINDINGS:; The visualized osseous elements are intact with no evidence of fracture or spondylolisthesis. The mar; row signals are within normal limits. There is straightening of normal lordotic curvature, compatible; with muscle spasm. The conus medullaris and cauda equina are within normal limits.; There is evidence of mild multilevel disc dehydration.; Evaluation of individual levels reveals the following:; At L5-S1, broad based disk bulge is present. Canal and neural foramina remain patent.; At L4-L5, broad based disk bulge is present. Canal and neural foramina remain patent.; At L3-L4, there is no disk herniation or bulge. Canal and neural foramina remain patent.; At L2-L3, there is no disk herniation or bulge. Canal and neural foramina remain patent.; At L1-L2, there is no disk herniation or bulge. Canal and neural foramina remain patent.; No evidence of intracanalicular hematoma.; IMPRESSION:; 1. Straightening of normal lordotic curvature, compatible with muscle spasm.; 2. Broad based disk bulges at L4-L5 and L5-S1.; Thank you for your kind referral of this patient.; ; Radiology Order: MRI T SPINE W/O FOLL WITH CON Test: MRI T SPINE W/O FOLL WITH CON REASON FOR EXAMINATION: parethesia after spinal injections; ; CLINICAL HISTORY: Back pain.; TECHNIQUE: Fast spin echo T2 and spin echo T1 sequences were obtained in axial and sagittal planes.; FINDINGS:; There is moderate chronic compression fracture of T8. Associated Schmorl's node formation.; There is mild chronic compression fracture of T9. Associated Schmorl's node formation.; The visualized osseous elements are intact and in normal alignment with no evidence of fracture or di; slocation. The marrow signals are within normal limits. The visualized posterior elements are normal; and the thoracic curvature is well maintained. The thoracic cord is of uniform signal intensity witho; ut evidence of focal expansion.; There is mild multilevel spondylosis. This is demonstrated by disc dehydration. Small anterior osteop; hytes are seen.; At T1-T2 level, no evidence of significant disk herniation or bulge. Canal and foramina are patent.; At T2-T3 level, no evidence of significant disk herniation or bulge. Canal and foramina are patent.; At T3-T4 level, no evidence of significant disk herniation or bulge. Canal and foramina are patent.; At T4-T5 level, no evidence of significant disk herniation or bulge. Canal and foramina are patent.; At T5-T6 level, no evidence of significant disk herniation or bulge. Canal and foramina are patent.; At T6-T7 level, no evidence of significant disk herniation or bulge. Canal and foramina are patent.; At T7-T8 level, no evidence of significant disk herniation or bulge. Canal and foramina are patent.; At T8-T9 level, no evidence of significant disk herniation or bulge. Canal and foramina are patent.; At T9-T10 level, no evidence of significant disk herniation or bulge. Canal and foramina are patent.; At T10-T11 level, no evidence of significant disk herniation or bulge. Canal and foramina are patent.; ; At T11-T12 level, no evidence of significant disk herniation or bulge. Canal and foramina are patent.; ; IMPRESSION:; 1. Mild multilevel spondylosis.; 2. No evidence for central canal or foraminal stenosis at any level.; 3. Chronic compression fractures of T8 and T9.; Thank you for your kind referral of this patient.; ; Outcome: 00:00 Discharge Assessment: Patient awake, alert and oriented x 3. No cognitive and/or cf2 functional deficits noted. Patient verbalized understanding of disposition instructions. Patient awake and alert. Oriented to person, place and time. patient administered narcotics - yes. Pt provided with safe discharge. The following High Risk Discharge criteria are identified: None. Discharged to home via wheelchair, with significant other. Condition: good Condition: stable Condition: improved. Discharge instructions given to patient, significant other, Instructed on discharge instructions, medication usage, Demonstrated understanding of instructions, medications, Prescriptions given X 3. MRI Study completed. 01:48 Discharge ordered by Provider. mm11 02:18 Patient left the ED. cf2 Signatures: Dispatcher [employer] EDMS Ashanti Virgen, Reg Reg Shelby Navarro,RN RN jo3 Loly Miranda Kristopher, NUCLEAR LOGGING ENGINEER NUCLEAR LOGGING ENGINEER [email or web address] Jasmina GrimaldoRN RN lf1 Rasheed Wang, DO mm11 Melony Polanco gr2 Reanna Prasad, [employer] Ashleigh Wise,DANIEL RN cf2 Thais Ennis RN tm5 Chart Complete MTDD
== END 2016-03-17 02:18 | disposition home or self-care (01) ==
LOC: M ED 20:27
DX: M54.5 Low back pain (principal); M51.9 Unspecified thoracic, thoracolumbar and lumbosacral intervertebral disc disorder; I10 Essential (primary) hypertension; F17.210 Nicotine dependence, cigarettes, uncomplicated; Z79.899 Other long term (current) drug therapy
CPT/HCPCS: 36415; 72157; 72158; 80048; 85025; 85652; 86140; 96374; 96375; 96376; 99284; A9576; J2930; J3360

== ENCOUNTER 2016-03-23 19:19 | Inpatient (IN) | payer OTHER ==
[~2016-03-23] VITALS: Ht 170.2 cm; Wt 82.1 kg
[2016-03-23] MEDS ORDERED: ZOLM2.5T PO (21:27)
[2016-03-23] MEDS ORDERED: VITA100066 PO (21:27)
[2016-03-23] MEDS ORDERED: FISH1000 PO (21:27)
[2016-03-23] MEDS ORDERED: GABA800T PO (21:27)
[2016-03-23] MEDS ORDERED: VITA100T98 PO (21:27)
[2016-03-23] MEDS ORDERED: LORazepam 2 MG/ML VIAL (J2060) As Ordered ONE (21:28)
[2016-03-23 21:29] LABS: BASO # 0.1 K/mm3 (0.0-0.2); BASO % 0.5 % (0.0-1.0); EOS # 0.1 K/mm3 (0.0-0.50); EOS % 1.1 % (0.0-3.0); LARGE UNSTAINED CELL # 0.2 K/mm3 (0.0-0.4); LARGE UNSTAINED CELL % 1.5 % (0.0-4.0); LYMPH # 4.5 K/mm3 (1.5-6.5); LYMPH % 38.3 % (24.0-44.0); MEAN CORPUSCULAR HEMOGLOBIN 27.7 pg (27.0-33.0); MEAN CORPUSCULAR VOLUME 83.9 fl (80.0-96.0); MONO # 0.7 K/mm3 (0.0-0.8); NEUTROPHILS # 6.1 K/mm3 (1.8-7.7); NEUTROPHILS % 52.6 % (36.0-66.0); PLATELET COUNT, AUTOMATED 231 k/mm3 (150-450); RED CELL DISTRIBUTION WIDTH 12.6 % (11.5-14.5); WHITE BLOOD COUNT 11.7 K/mm3 (4.0-10.0)
[2016-03-23 21:51] LABS: ERYTHROCYTE SEDIMENTATION RATE 2 mm/hr (0-15)
[2016-03-23 21:55] LABS: ANION GAP 10 MEQ/L (8-16); BLOOD UREA NITROGEN 14 MG/DL (7-18); CARBON DIOXIDE LEVEL 25 MEQ/L (21-32); CHLORIDE LEVEL 105 MEQ/L (98-107); CREATININE FOR GFR 1.01 MG/DL (0.70-1.30); FREE T4 1.21 NG/DL (0.76-1.46); GLOMERULAR FILTRATION RATE > 60.0 (>60); GLUCOSE, FASTING 90 MG/DL (70-105); POTASSIUM SERUM 3.8 MEQ/L (3.5-5.1); SODIUM LEVEL 140 MEQ/L (136-145)
--- NOTE | 2016-03-23 22:30 | REPUSA ---
CLINICAL HISTORY: Anesthesia since back injection TECHNIQUE: MRI of the brain was performed without administration of intravenous contrast material. T1 spine echo, T2 fast spin echo and FLAIR sequences were obtained in sagittal, axial and coronal plane s. FINDINGS: The sella and parasellar regions are unremarkable in appearance. The corpus callosum and cerebellar t onsils are of normal configuration and position. There are no intra or extra-axial collections. There is no mass effect or midline shift. There is no evidence of hematoma formation. There is no hydrocep halus. The brain stem shows no mass effects, infarcts or hemorrhage. There are no cerebellopontine tumors. T he acoustic nerves are symmetrical. No cerebellar intra-axial pathology delineated. The fourth ventri villa and aqueduct are normal. No abnormalities of the optic nerves are identified. No dural or subdura l masses or collections are detected. The visualized arterial structures demonstrate normal appearing flow voids. The VII and VIII nerve bu ndles are visualized and are unremarkable in appearance. There are no suspicious signal abnormalities within the infra or supratentorial space. IMPRESSION: No acute intracranial pathology.
--- NOTE | 2016-03-23 23:40 | REPUSA ---
History: PT HAD INJECTION DONE IN [place] ON 03/08 ON HIS THORACIC SPINE AND SINCE THEN HAS HAD MRI O F THE T/L-SPING W/WO CONTRAST, SINCE LAST WEEK THE URINARY PROBLEMS HAVE INCREASE, WELL THE VANDANA N IN BACK AND NUMBNESS IN LT LEG Procedure: Multiple high-resolution T1 and T2 weighted sequences were obtained in the axial and sagit marge planes including sagittal sequences in flexion and extension. Findings: The spinal cord is of normal size, configuration, position, and signal intensity. There is no evidence of intra-axial or extra-axial masses. There is no significant marrow signal alteration. D isc spaces are preserved. C3-C5 broad-based posterior disc bulges noted with no focal herniation. Remaining intervertebral disc spaces demonstrate no significant bulges or herniation. Neural foramina and spinal canal appear vazquez nt at all levels. Impression: 1. No acute fracture. 2. C3-C5 broad-based posterior disc bulges noted with no focal herniation. Thank you for your kind referral of this patient. Thank you for your kind referral of this patient.
--- NOTE | 2016-03-23 23:50 | REPUSA ---
HISTORY : PT HAD INJECTION DONE IN [place] ON 03/08 ON HIS THORACIC SPINE AND SINCE THEN HAS HAD MRI OF THE T/L-SPING W/WO CONTRAST, SINCE LAST WEEK THE URINARY PROBLEMS HAVE INCREASE, WELL THE P AIN IN BACK AND NUMBNESS IN LT LEG TECHNIQUE: Fast spin echo T2 and spin echo T1 sequences were obtained in axial and sagittal planes. FINDINGS: The visualized osseous elements are intact with no evidence of fracture or spondylolisthesis. The mar row signals are within normal limits. There is straightening of normal lordotic curvature, compatible with muscle spasm. The conus medullaris and cauda equina are within normal limits. Evaluation of individual levels reveals the following: At L5-S1, mild broad based disk bulge is present. Canal and neural foramina remain patent. At L4-L5, mild broad based disk bulge is present. Canal and neural foramina remain patent. At L3-L4, mild broad-based disc bulge is present. Canal and neural foramina remain patent. At L2-L3, there is no disk herniation or bulge. Canal and neural foramina remain patent. At L1-L2, there is no disk herniation or bulge. Canal and neural foramina remain patent. IMPRESSION: 1. No acute fracture, spondylolisthesis, or osseous lesion. 2. Broad based disk bulges at L3-S1 with no focal herniation. Canal and neural foraminal are patent. Thank you for your kind referral of this patient.
--- NOTE | 2016-03-23 23:50 | REPUSA ---
History: PT HAD INJECTION DONE IN [place] ON 03/08 ON HIS THORACIC SPINE AND SINCE THEN HAS HAD MRI O F THE T/L-SPING W/WO CONTRAST, SINCE LAST WEEK THE URINARY PROBLEMS HAVE INCREASE, WELL THE VANDANA N IN BACK AND NUMBNESS IN LT LEG COMPARISON: None TECHNIQUE: Magnetic resonance imaging of the thoracic spine was performed with a standard multiplanar multisequence protocol. FINDINGS: There are mild T9-T11 mid superior endplate compression deformities without edema likely chronic. Nor mal remaining thoracic vertebral body height and alignment on this supine, non-weight bearing exam. Vertebral body marrow signal is normal. No marrow replacement or destruction. The spinal cord and conus medullaris have normal diameter and signal intensity and show no expansion or compression. Intervertebral disc spaces have normal height and signal intensity. There is no herniated nucleus pul posus, canal or foraminal stenosis. No paraspinal masses or collections. IMPRESSION: 1. There are mild T9-T11 mid superior endplate compression deformities without edema likely chronic. 2. No evidence of herniated nucleus pulposus, canal or foraminal stenosis. The spinal canal demonstra annemarie grossly uniform signal intensity with no evidence of space-occupying mass or fluid collection. Thank you for your kind referral of this patient
[2016-03-24] MEDS ORDERED: ACETAMINOPHEN TAB 650MG DOSE (2X325MG) PO PRN (01:15)
[2016-03-24] MEDS ORDERED: ONDANSETRON 4MG/2ML VIAL (J2405) IV PRN (01:15)
[2016-03-24] MEDS ORDERED: ZOLMitriptan TABLET 2.5MG PO PRN (01:15)
--- NOTE | 2016-03-24 01:32 | HPEPDOC ---
General Date of Admission 03/24/16 Chief Complaint The patient is a 25-year-old male admitted with a reason for visit of Back Pain/ Bladder Issue. History of Present Illness 25-year-old male with past medical history of chronic back pain presented to the ER with a chief complaint of increasing weakness in the left lower extremity and numbness and tingling in the genital area and in the left lower extremity. The patient states that this all started after he received 2 trigger point injections in his thoracic spine area on March 08, 2016. The patient does note that he has been having the numbness and tingling in the genital area for a few months now. He states that he did have an episode of urinary incontinence last night. He denies any episodes of fecal incontinence. In the ER , MRI studies of the brain, cervical, thoracic, and lumbar spine were done. The findings are only notable for a mild T9-T11 mid superior endplate compression deformity without edema, which was noted to be chronic in nature. There was no evidence of herniated nucleus pulposus, canal or foraminal stenosis. A call was placed by the ER physician to Dr. Song of neurosurgery who has reviewed all of the imaging. He suggests no indication for any acute intervention at this time, as all the changes to the patient's spine appear to be chronic in nature. He has suggested that we follow up with a MRI of the thoracic spine with contrast later this morning. At this time, the patient will be admitted to the hospitalist service for further evaluation and management. Home Medications Scheduled Cholecalciferol (Vitamin D) 1,000 Unit Tab 1,000 UNIT PO BID (Reported) Fish Oil (Fish Oil) 1,000 Mg Cap 1,000 MG PO DAILY (Reported) Gabapentin (Gabapentin) 800 Mg Tab 800 MG PO TID (Reported) Riboflavin (Vitamin B-2) 100 Mg Tab 100 MG PO BID (Reported) Scheduled PRN Zolmitriptan (Zolmitriptan) 2.5 Mg Tab 2.5 MG PO Q8H PRN PRN MIGRAINE (Reported ) Allergies Coded Allergies: No Known Allergies (Unverified , 03/23/16) Past Medical History Medical History As noted in HPI. Surgical History Left knee arthroscopy 2. Family History Significant Family History: No pertinent family hx Social History * Smoker: current smoker Alcohol: occationally Drugs: denies Is part of the since 2012. Review of Symptoms Other systems 10 point review of systems is negative unless otherwise specified in HPI. Physical Examination General Exam: Positive: Alert, Cooperative, No Acute Distress ENT Exam: Positive: Atraumatic, Mucous membr. moist/pink Neck Exam: Negative: JVD Chest Exam: Positive: Clear to auscultation, Normal air movement Heart Exam: Positive: Normal S1, Normal S2, Rate Normal Abdomen Exam: Positive: Soft, Negative: Tenderness Extremity Exam: Positive: Normal pulses, Negative: Tenderness Neuro Exam: Positive: Normal Tone, Other (strength noted to be 5 out of 5 in the upper extremity is bilaterally, and 5 out of 5 on hip flexion, knee and ankle flexion/extension on the right lower extremity. 3 out of 5 strength noted in the left lower extremity on hip flexion, knee and ankle flexion/extension. Patient notes diminished sensation on the left lower extremity compared to the right on palpation.) Laboratory Data Labs 24H Laboratory Tests 2 03/23/16 21:14: Anion Gap 10, White Blood Count 11.7H, Red Blood Count 5.79, Hemoglobin 16.0, Hematocrit 48.6, Mean Corpuscular Volume 83.9, Mean Corpuscular Hemoglobin 27.7 , Mean Corpuscular Hemoglobin Concent 33.0, Red Cell Distribution Width 12.6, Platelet Count 231, Neutrophils (%) (Auto) 52.6, Lymphocytes (%) (Auto) 38.3, Monocytes (%) (Auto) 6.0H, Eosinophils (%) (Auto) 1.1, Basophils (%) (Auto) 0.5 , Neutrophils # (Auto) 6.1, Lymphocytes # (Auto) 4.5, Monocytes # (Auto) 0.7, Eosinophils # (Auto) 0.1, Basophils # (Auto) 0.1, C-Reactive Protein, Quantitative < 0.30, Blood Urea Nitrogen 14, Creatinine 1.01, Sodium Level 140, Potassium Level 3.8, Chloride Level 105, Carbon Dioxide Level 25, Calcium Level 9.0, Erythrocyte Sedimentation Rate 2, Free Thyroxine 1.21, Glomerular Filtration Rate > 60.0, Large Unclassified Cells # 0.2, Large Unclassified Cells % 1.5, Thyroid Stimulating Hormone (TSH) 1.010 CBC/BMP Laboratory Tests 03/23/16 21:14 Calcium Level 9.0, Red Blood Count 5.79, Mean Corpuscular Volume 83.9, Mean Corpuscular Hemoglobin 27.7, Mean Corpuscular Hemoglobin Concent 33.0, Red Cell Distribution Width 12.6, Neutrophils (%) (Auto) 52.6, Lymphocytes (%) (Auto) 38.3, Monocytes (%) (Auto) 6.0 H, Eosinophils (%) (Auto) 1.1, Basophils (%) ( Auto) 0.5, Neutrophils # (Auto) 6.1, Lymphocytes # (Auto) 4.5, Monocytes # (Auto ) 0.7, Eosinophils # (Auto) 0.1, Basophils # (Auto) 0.1 Plan / VTE VTE Prophylaxis Ordered?: Yes Plan Plan Chronic back pain with weakness of the left lower extremity, and numbness/ tingling of the genital area and left lower extremity. Patient states that he has had these problems chronically in the past but they have progressed since he received trigger point injections on 03/08/2016 in the [place] area. MRI of the brain, cervical, thoracic, and lumbar spine completed-notable only for mild T9-T11 mid superior endplate compression deformities without edema likely chronic in nature The above imaging and findings reviewed by Dr. Song of neurosurgery who states that these changes appear to be chronic in nature, and no acute neurosurgical intervention is indicated at this time. A follow-up MRI of the thoracic spine with contrast later this a.m. has been suggested as per Dr. Song Continue gabapentin Physical therapy Neuro checks DVT prophylaxis-Lovenox This patient will be admitted under the service of Dr. Escalona who will begin to follow this patient on 03/24/2016 at 7 AM. ABY TIERNEY MD Mar 24, 2016 01:32
--- NOTE | 2016-03-24 02:10 | REP ---
Clinical: Chest and back pain . Comparison: 12/24/2015 . Findings: The mediastinum and cardiac silhouette are stable and within normal limits for portable technique. The lung gaines are clear without acute consolidation, effusion, or pneumothorax. Skeletal structures are intact. Impression: Normal portable chest x-ray Signed by Jose Jaeger MD 03/24/2016 02:01 A
--- NOTE | 2016-03-24 02:11 | EDDOCDS ---
Physician Documentation [facility] Name: Xu Larios Age: 25 yrs Sex: Male : 1990 Arrival Date: 03/23/2016 Time: 19:19 Bed 14 Private MD: Dinesh GRANGER Disposition: 03/24 00:15 Critical Care: Critical care not applicable. pc Disposition: 03/24/16 00:19 Hospitalization ordered by Alan Santoro for Inpatient Admission. Preliminary diagnosis are Disturbances of skin sensation - LEs, Other specified urinary incontinence - r/o spinal cord stroke. - Bed requested for M PED. - Status is Inpatient Admission. tm5 - Condition is Stable. - Problem is an ongoing problem. - Symptoms are unchanged. Historical: - Allergies: No known drug Allergies; - Home Meds: 1. gabapentin 800 mg Oral tab 3 times per day 2. Fish Oil Oral 1000 mg daily 3. vitamin B2 1 tablet twice daily 4. Vitamin D3 1,000 unit oral tab twice a day 5. zolmitriptan 2.5 mg oral tab 1 tab every 8 hours as needed - PMHx: herniated discs; chronic back pain; Hypertension; - PSHx: Knee surgery- Left; - Social history: Smoking status: Patient uses tobacco products, heavy tobacco smoker. No barriers to communication noted, The patient speaks fluent Kiswahili, Speaks appropriately for age. - Family history: Not pertinent. - : The pt / caregiver states he / she is not on anticoagulants. Home medication list is obtained from the patient. - Exposure Risk Screening:: None identified. Vital Signs: 03/23 19:21 BP 134 / 79; Pulse 104; Resp 18 S; Temp 96.9(O); Pulse Ox 97% on R/A; Weight 82.1 kg / gr2 181 lbs (R); Height 5 ft. 7 in. (170.18 cm) (R); Pain 8/10; 03/24 01:37 BP 132 / 82; Pulse 74; Resp 18; Temp 97.9(O); Pulse Ox 98% on R/A; Pain 3/10; tm5 03/23 19:21 Body Mass Index 28.35 (82.10 kg, 170.18 cm) gr2 MDM: 03/23 20:58 IV Saline Lock ordered. ml 20:58 MRI Screening Tool - Place on chart, inform RN ordered. ml 21:00 -MRI-Brain without Ordered. EDMS 21:00 -MRI-Spine, Cervical without contrast Ordered. EDMS 21:00 -MRI-Spine,Thoracic without contrast Ordered. EDMS 21:00 Chest, 1 View Ordered. EDMS 21:01 BED REQUEST+ADM ordered. EDMS 21:01 Financial registration complete. zo 21:05 MRI Screening Tool - Place on chart, inform RN complete. kb5 21:20 CBC with Diff Ordered. EDMS 21:20 MED Profile Ordered. EDMS 21:20 TSH with Free T4 Ordered. EDMS 21:20 C Reactive Protein Ordered. EDMS 21:20 ESR Ordered. EDMS 21:20 -MRI-Spine, Lumbar without contrast Ordered. EDMS 21:28 LORazepam 1 mg IVP once ordered. pc 21:33 [facility] Payment Agreement was scanned into [employer] and attached to record. zo 22:00 CBC with Diff Reviewed. pc 22:00 MED Profile Reviewed. pc 22:00 TSH with Free T4 Reviewed. pc 22:00 C Reactive Protein Reviewed. pc 22:00 ESR Reviewed. pc 03/24 00:15 Test interpretation: MRI - interpreted by Radiologist and personally reviewed, Brain pc (MRI) - No acute disease C-Spine (MRI) - mild disc bulges without canal or foramen narrowing, L-Spine MRI mild disc bulges without canal or foramen narrowing, T-Spine: compression of superior endplate T9-11, canal and foramen patent. The patient has been re-examined and re-evaluated. There is no appreciated change of the patient's symptoms at this time. Physician consultation: Dr. Alan Santoro was contacted at 00:16, regarding admission, and will see patient in ED. 00:15 Physician consultation: Dr. Cathy Song was contacted at 00:16, regarding patient's pc condition, will review the MRIs and call back. Disposition: The historical points, examination findings, and any diagnostic results supporting the provided diagnosis, were discussed with the patient or legal guardian. The need for further work-up and/or treatment in the hospital was explained. 00:48 Physician consultation: Dr. Cathy Song was contacted at 00:48, regarding patient's pc condition, and he agrees with the readings, that the MRIs are essentially unremarkable. He advises that a MRI of T-spine with contrast following cord stroke protocol be performed in the morning. Dr. Santoro was advised of his recommendation . 01:12 MRI Spine, Thoracic with con Ordered. EDMS 01:13 PHYSICAL THERAPY EVAL & TREAT ordered. EDMS 01:14 Admission / Observation Status ordered. EDMS 01:14 REGULAR DIET ordered. EDMS Administered Medications: 03/23 21:31 Drug: LORazepam 1 mg [lorazepam 2 mg/mL injection solution (0.5 mL)] Route: IVP; Site: 5 right forearm; 22:26 Follow up: Response: Pt left department before re-evaluation is appropriate 5 Signatures: Dispatcher [employer] EDMS Piter Quezada MD MD pc Lundborg-Gray, Maja, MD MD ml Olin, Zoeann zo Bancroft, Kristopher, [employer] [id number] Jame Meyers RN RN [id number] Thais Ennis RN RN tm5 The chart was reviewed and I authenticate all verbal orders and agree with the evaluation and treatment provided.Corrections: (The following items were deleted from the chart) 20:12 19:30 Home Meds: Percocet 5-325 mg Oral tab 1 tab every 4-6 hours; 1 tm5 20:12 19:30 Home Meds: Valium Oral; [facility] tm5 20:12 19:30 Home Meds: prednisone Oral; 1 pill daily for 5 days; [facility] tm5 Attachments: 21:33 [facility] Payment Agreement zo MTD[employer]
--- NOTE | 2016-03-24 02:11 | EDDOCDS ---
Nurse's Notes [facility] Name: Xu Larios Age: 25 yrs Sex: Male : 1990 Arrival Date: 03/23/2016 Time: 19:19 Bed 14 Private MD: NEDinesh MEIER Diagnosis: Disturbances of skin sensation-LEs;Other specified urinary incontinence-r/o spinal cord stroke Presentation: 03/23 19:25 Presenting complaint: Patient states: he has been seen 3 times for the same, patient nn1 states he received spinal injection on 03/08/16. States he has had no feeling in left leg, saddle numbness since injection. Last night reports he began having incontinence, reports he has had no episodes of incontinence today but has had urinary retention. Acute neurological deficits are present. The charge nurse has been notified. 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 Reports compression deformities of spine. Adult Sepsis Screening: The patient does not have new or worsening altered mentation. Patient's respiratory rate is less than 22. Systolic blood pressure is greater than 100. Patient has a qSOFA score of 0- Negative Sepsis Screen. Suicide/Homicide risk assessment- the patient denies having any suicidal and/or homicidal ideations and does not present with any other emotional, behavioral or mental health complaints. 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 Transition of care: patient was not received from another setting of care. 19:25 Acuity: KIM Level 3 nn1 19:25 Method Of Arrival: Walkin/Carried/Asstd nn1 Triage Assessment: 19:31 General: Appears in no apparent distress, uncomfortable, Behavior is appropriate for nn1 age, cooperative. Pain: Location: back Pain currently is 8 out of 10 on a pain scale. Pain began 2 weeks ago following injection. HIV screening NA for this visit Offered previously. The patient is triaged at the bedside. See Assessment in Nurses Notes section of ED record. Neurological: Level of Consciousness is awake, alert, Reports numbness. Respiratory: No deficits noted. : Reports incontinence 1 episode yesterday. Musculoskeletal: Circulation, motion, and sensation intact Capillary refill < 3 seconds Range of motion intact in all extremities. Historical: - Allergies: No known drug Allergies; - Home Meds: 1. gabapentin 800 mg Oral tab 3 times per day 2. Fish Oil Oral 1000 mg daily 3. vitamin B2 1 tablet twice daily 4. Vitamin D3 1,000 unit oral tab twice a day 5. zolmitriptan 2.5 mg oral tab 1 tab every 8 hours as needed - PMHx: herniated discs; chronic back pain; Hypertension; - PSHx: Knee surgery- Left; - Social history: Smoking status: Patient uses tobacco products, heavy tobacco smoker. No barriers to communication noted, The patient speaks fluent Tajik, Speaks appropriately for age. - Family history: Not pertinent. - : The pt / caregiver states he / she is not on anticoagulants. Home medication list is obtained from the patient. - Exposure Risk Screening:: None identified. Screenin:50 Screening information is obtained from the patient. Fall risk: No risks identified. tm5 Assistance ADL's: requires no assistance with activities of daily living. Abuse/DV Screen: The patient / caregiver reports he/she is: not in a situation that causes fear, pain or injury. Nutritional screening: No deficits noted. Advance Directives: There is no active DNR order. home support is adequate. Assessment: 20:05 General: Appears in no apparent distress, Behavior is appropriate for age, cooperative. tm5 Pain: Location: lumbar area, left low back and right low back Pain currently is 8 out of 10 on a pain scale. Quality of pain is described as sharp, shooting. 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 Weakness in left hand's) leg(s) foot/feet per pt he has numbness to left side of his body generally with saddle numbness with sitting for even short periods of time, while doing foot presses pt puts forth no effort to press foot down or pull towards his nose so left hand service trainer weak & left foot presses weak. Gait is steady, Speech is normal, Facial symmetry appears normal, Facial symmetry: tongue is midline, Pupils are PERRLA, Numbness in left foot and left leg Reports Back Pain numbness weakness numbness is to left side per pt . Respiratory: Airway is patent Respiratory effort is even, unlabored, Respiratory pattern is regular, symmetrical, Breath sounds are clear bilaterally. GI: Abdomen is flat, non- distended Bowel sounds present X 4 quads. : Reports incontinence one episode of urinary incontinence last night while sleeping pt also states that he has from time to time the inability to void or his urine "trickles out", pt also states that he can't ever feel himself move his bowels either. Derm: Skin is pink, warm & dry. Musculoskeletal: Reports weakness in left foot, left arm and left leg numbness in left foot and left leg pain in back incontinence of bowel or bladder, problems with urination. 21:25 Reassessment: Patient appears in no apparent distress at this time. no changes in tm5 assessment, MRI screen completed & handed to creping machine operator helper . 21:31 General: medicated per orders for pt complains of pain in his back & asked for pain tm5 medications before he lies down for long period of time in MRI. 23:55 Reassessment: Patient appears in no apparent distress at this time. Patient states tm5 symptoms have improved. pt resting with eyes closed, respirations easy, no s/s of any distress. 03/24 01:37 General: Appears in no apparent distress, Behavior is appropriate for age, cooperative. tm5 Pain: Location: back Pain currently is 3 out of 10 on a pain scale. 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 Weakness in left hand's) leg(s) foot/feet Gait is steady, Speech is normal, Facial symmetry appears normal, Facial symmetry: tongue is midline, Pupils are PERRLA, Numbness in left foot and left leg. Respiratory: Airway is patent Respiratory effort is even, unlabored, Respiratory pattern is regular, symmetrical, Breath sounds are clear bilaterally. Vital Signs: 03/23 19:21 BP 134 / 79; Pulse 104; Resp 18 S; Temp 96.9(O); Pulse Ox 97% on R/A; Weight 82.1 kg gr2 (R); Height 5 ft. 7 in. (170.18 cm) (R); Pain 8/10; 03/24 01:37 BP 132 / 82; Pulse 74; Resp 18; Temp 97.9(O); Pulse Ox 98% on R/A; Pain 3/10; tm5 03/23 19:21 Body Mass Index 28.35 (82.10 kg, 170.18 cm) gr2 Vitals: 03/23 19:21 Log In Time: March 23, 2016 at 19:21. RN notified that patient meets Red Flag gr2 criteria. ED Course: 19:20 Patient visited by Melony Polanco. gr2 19:20 Patient moved to Waiting gr2 19:21 [facility] gr2 19:25 Patient visited by Melony Polanco. gr2 19:25 Patient moved to Pre RCE gr2 19:28 Triage Initiated nn1 19:41 Patient moved to 14 kmg1 20:12 Awaiting ED physician evaluation. tm5 20:35 Thaddeus Buck MD is Attending Physician. ml 20:35 Patient visited by Thaddeus Buck MD. ml 20:36 Patient visited by Thais Ennis RN. tm5 20:36 ED physician to see patient. tm5 21:14 Attending Physician role handed off by Thaddeus Buck MD pc 21:14 Piter Quezada MD is Attending Physician. pc 21:15 Inserted saline lock: 18 gauge in right forearm and blood collected. The patient tm5 tolerated the procedure well. Labs drawn. (by ED staff). Held in ED. 21:16 Portable x-ray done. tm5 21:24 Patient visited by Thais Ennis RN. tm5 21:31 Patient moved to MRI. tm5 21:33 COUNT INCLUDES THE [facility] Payment Agreement was scanned into [employer] and attached to record. zo 21:46 Patient moved to MRI jlm 23:15 Patient moved back from MRI. tm5 23:18 -MRI-Brain without Returned. EDMS 23:31 Patient visited by Thais Ennis RN. tm5 23:49 Patient moved to 14 jlm 23:53 Patient visited by Thais Ennis,DANIEL. tm5 02/09 00:08 Patient visited by Thais Ennis,DANIEL. tm5 00:[address] Santoro. tm5 00:13 -MRI-Spine, Cervical without contrast Returned. EDMS 00:13 -MRI-Spine,Thoracic without contrast Returned. EDMS 00:13 -MRI-Spine, Lumbar without contrast Returned. EDMS 00:19 Alan Santoro is Hospitalizing Provider. pc 01:37 Patient visited by Thais Ennis RN. tm5 01:37 Awaiting transfer to admission bed . tm5 01:37 The patient / caregiver is instructed regarding the plan of care and ED course. tm5 01:37 No procedures done that require assistance. tm5 01:48 Patient visited by Thais Ennis RN. tm5 01:48 Report given to Lolis SANCHEZ on PEDS floor, ready for pt's admission to the floor. tm5 Administered Medications: 03/23 21:31 Drug: LORazepam 1 mg [lorazepam 2 mg/mL injection solution (0.5 mL)] Route: IVP; Site: 5 right forearm; 22:26 Follow up: Response: Pt left department before re-evaluation is appropriate tm5 Order Results: Lab Order: CBC with Diff; SPEC'M 03/23/16 21:14 Test: WHITE BLOOD COUNT; Value: 11.7; Range: 4.0-10.0; Abnormal: Above high normal; Units: K/mm3; Status: F Test: RED BLOOD COUNT; Value: 5.79; Range: 4.30-6.10; Units: M/mm3; Status: F Test: HEMOGLOBIN; Value: 16.0; Range: 14.0-18.0; Units: g/dl; Status: F Test: HEMATOCRIT; Value: 48.6; Range: 42.0-52.0; Units: %; Status: F Test: MEAN CORPUSCULAR VOLUME; Value: 83.9; Range: 80.0-96.0; Units: fl; Status: F Test: MEAN CORPUSCULAR HEMOGLOBIN; Value: 27.7; Range: 27.0-33.0; Units: pg; Status: F Test: MEAN CORPUSCULAR HGB CONC; Value: 33.0; Range: 32.0-36.5; Units: g/dl; Status: F Test: RED CELL DISTRIBUTION WIDTH; Value: 12.6; Range: 11.5-14.5; Units: %; Status: F Test: PLATELET COUNT, AUTOMATED; Value: 231; Range: 150-450; Units: k/mm3; Status: F Test: NEUTROPHILS %; Value: 52.6; Range: 36.0-66.0; Units: %; Status: F Test: LYMPH %; Value: 38.3; Range: 24.0-44.0; Units: %; Status: F Test: MONO %; Value: 6.0; Range: 0.0-5.0; Abnormal: Above high normal; Units: %; Status: F Test: EOS %; Value: 1.1; Range: 0.0-3.0; Units: %; Status: F Test: BASO %; Value: 0.5; Range: 0.0-1.0; Units: %; Status: F Test: LARGE UNSTAINED CELL %; Value: 1.5; Range: 0.0-4.0; Units: %; Status: F Test: NEUTROPHILS #; Value: 6.1; Range: 1.8-7.7; Units: K/mm3; Status: F Test: LYMPH #; Value: 4.5; Range: 1.5-6.5; Units: K/mm3; Status: F Test: MONO #; Value: 0.7; Range: 0.0-0.8; Units: K/mm3; Status: F Test: EOS #; Value: 0.1; Range: 0.0-0.50; Units: K/mm3; Status: F Test: BASO #; Value: 0.1; Range: 0.0-0.2; Units: K/mm3; Status: F Test: LARGE UNSTAINED CELL #; Value: 0.2; Range: 0.0-0.4; Units: K/mm3; Status: F Lab Order: [facility]; [facility] 03/23/16 21:14 Test: GLUCOSE, FASTING; Value: 90; Range: 70-105; Units: MG/DL; Status: F Test: BLOOD UREA NITROGEN; Value: 14; Range: 7-18; Units: MG/DL; Status: F Test: CREATININE FOR GFR; Value: 1.01; Range: 0.70-1.30; Units: MG/DL; Status: F Test: GLOMERULAR FILTRATION RATE; Value: > 60.0; Range: >60; Status: F Test: SODIUM LEVEL; Value: 140; Range: 136-145; Units: MEQ/L; Status: F Test: POTASSIUM SERUM; Value: 3.8; Range: 3.5-5.1; Units: MEQ/L; Status: F Test: CHLORIDE LEVEL; Value: 105; Range: 98-107; Units: MEQ/L; Status: F Test: CARBON DIOXIDE LEVEL; Value: 25; Range: 21-32; Units: MEQ/L; Status: F Test: ANION GAP; Value: 10; Range: 8-16; Units: MEQ/L; Status: F Test: CALCIUM LEVEL; Value: 9.0; Range: 8.5-10.1; Units: MG/DL; Status: F Test Note: ; Units are mL/min/1.73 m2 Chronic Kidney Disease Staging per NKF: Stage I & II GFR >=60 Normal to Mildly Decreased Stage III GFR 30-59 Moderately Decreased Stage IV GFR 15-29 Severely Decreased Stage V GFR <15 Very Little GFR Left ESRD GFR <15 on [employer] Lab Order: TSH with Free T4; SPEC' 03/23/16 21:14 Test: THYROID STIMULATING HORMONE; Value: 1.010; Range: 0.358-3.740; Units: uIU/ML; Status: F Test: FREE T4; Value: 1.21; Range: 0.76-1.46; Units: NG/DL; Status: F Lab Order: C Reactive Protein; SPEC' 03/23/16 21:14 Test: C REACTIVE PROTEIN QUANTITATIV; Value: < 0.30; Range: 0.00-0.30; Units: MG/DL; Status: F Lab Order: ESR; SPEC' 03/23/16 21:14 Test: ERYTHROCYTE SEDIMENTATION RATE; Value: 2; Range: 0-15; Units: mm/hr; Status: F Radiology Order: -MRI-Brain without Test: -MRI-Brain without REASON FOR EXAMINATION: saddle anesthesia, back pain; ; CLINICAL HISTORY: Anesthesia since back injection; TECHNIQUE: MRI of the brain was performed without administration of intravenous contrast material. T1; spine echo, T2 fast spin echo and FLAIR sequences were obtained in sagittal, axial and coronal plane; s.; FINDINGS:; The sella and parasellar regions are unremarkable in appearance. The corpus callosum and cerebellar t; onsils are of normal configuration and position. There are no intra or extra-axial collections. There; is no mass effect or midline shift. There is no evidence of hematoma formation. There is no hydrocep; halus.; The brain stem shows no mass effects, infarcts or hemorrhage. There are no cerebellopontine tumors. T; he acoustic nerves are symmetrical. No cerebellar intra-axial pathology delineated. The fourth ventri; villa and aqueduct are normal. No abnormalities of the optic nerves are identified. No dural or subdura; l masses or collections are detected.; The visualized arterial structures demonstrate normal appearing flow voids. The VII and VIII nerve bu; ndles are visualized and are unremarkable in appearance. There are no suspicious signal abnormalities; within the infra or supratentorial space.; IMPRESSION:; No acute intracranial pathology.; ; ; Radiology Order: -MRI-Spine, Cervical without contrast Test: -MRI-Spine, Cervical without contrast REASON FOR EXAMINATION: saddle anesthe, back pain, progressive inability to walk; ; History: PT HAD INJECTION DONE IN [place] ON 03/08 ON HIS THORACIC SPINE AND SINCE THEN HAS HAD MRI O; F THE T/L-SPING W/WO CONTRAST, SINCE LAST WEEK THE URINARY PROBLEMS HAVE INCREASE, WELL THE VANDANA; N IN BACK AND NUMBNESS IN LT LEG; Procedure: Multiple high-resolution T1 and T2 weighted sequences were obtained in the axial and sagit; marge planes including sagittal sequences in flexion and extension.; Findings: The spinal cord is of normal size, configuration, position, and signal intensity. There is; no evidence of intra-axial or extra-axial masses. There is no significant marrow signal alteration. D; isc spaces are preserved.; C3-C5 broad-based posterior disc bulges noted with no focal herniation. Remaining intervertebral disc; spaces demonstrate no significant bulges or herniation. Neural foramina and spinal canal appear vazquez; nt at all levels.; Impression:; 1. No acute fracture.; 2. C3-C5 broad-based posterior disc bulges noted with no focal herniation.; Thank you for your kind referral of this patient.; Thank you for your kind referral of this patient.; ; Radiology Order: -MRI-Spine,Thoracic without contrast Test: -MRI-Spine,Thoracic without contrast REASON FOR EXAMINATION: spT8 injection, progressive anesthesia, inability to walk; ; History: PT HAD INJECTION DONE IN [place] ON 03/08 ON HIS THORACIC SPINE AND SINCE THEN HAS HAD MRI O; F THE T/L-SPING W/WO CONTRAST, SINCE LAST WEEK THE URINARY PROBLEMS HAVE INCREASE, WELL THE VANDANA; N IN BACK AND NUMBNESS IN LT LEG; COMPARISON: None; TECHNIQUE: Magnetic resonance imaging of the thoracic spine was performed with a standard multiplanar; multisequence protocol.; FINDINGS:; There are mild T9-T11 mid superior endplate compression deformities without edema likely chronic. Nor; mal remaining thoracic vertebral body height and alignment on this supine, non-weight bearing exam.; Vertebral body marrow signal is normal. No marrow replacement or destruction.; The spinal cord and conus medullaris have normal diameter and signal intensity and show no expansion; or compression.; Intervertebral disc spaces have normal height and signal intensity. There is no herniated nucleus pul; posus, canal or foraminal stenosis.; No paraspinal masses or collections.; IMPRESSION:; 1. There are mild T9-T11 mid superior endplate compression deformities without edema likely chronic.; 2. No evidence of herniated nucleus pulposus, canal or foraminal stenosis. The spinal canal demonstra; annemarie grossly uniform signal intensity with no evidence of space-occupying mass or fluid collection.; Thank you for your kind referral of this patient; ; Radiology Order: -MRI-Spine, Lumbar without contrast Test: -MRI-Spine, Lumbar without contrast REASON FOR EXAMINATION: saddle anesthesia; ; HISTORY : PT HAD INJECTION DONE IN [place] ON 03/08 ON HIS THORACIC SPINE AND SINCE THEN HAS HAD MRI; OF THE T/L-SPING W/WO CONTRAST, SINCE LAST WEEK THE URINARY PROBLEMS HAVE INCREASE, WELL THE P; AIN IN BACK AND NUMBNESS IN LT LEG; TECHNIQUE: Fast spin echo T2 and spin echo T1 sequences were obtained in axial and sagittal planes.; FINDINGS:; The visualized osseous elements are intact with no evidence of fracture or spondylolisthesis. The mar; row signals are within normal limits. There is straightening of normal lordotic curvature, compatible; with muscle spasm. The conus medullaris and cauda equina are within normal limits.; Evaluation of individual levels reveals the following:; At L5-S1, mild broad based disk bulge is present. Canal and neural foramina remain patent.; At L4-L5, mild broad based disk bulge is present. Canal and neural foramina remain patent.; At L3-L4, mild broad-based disc bulge is present. Canal and neural foramina remain patent.; At L2-L3, there is no disk herniation or bulge. Canal and neural foramina remain patent.; At L1-L2, there is no disk herniation or bulge. Canal and neural foramina remain patent.; IMPRESSION:; 1. No acute fracture, spondylolisthesis, or osseous lesion.; 2. Broad based disk bulges at L3-S1 with no focal herniation. Canal and neural foraminal are patent.; ; Thank you for your kind referral of this patient.; ; Outcome: 03/24 00:19 Decision to Hospitalize by Provider. pc 01:48 Discharge Assessment: Patient awake, alert and oriented x 3. No cognitive and/or tm5 functional deficits noted. Patient verbalized understanding of disposition instructions. patient administered narcotics - no. The following High Risk Discharge criteria are identified: None. Admitted to Pediatrics accompanied by tech, via stretcher, with chart. Condition: good Condition: stable. MRI Study completed. Property :Personal belongings accompany Pt. 02:09 Patient left the ED. tm5 Signatures: Dispatcher [employer] EDMS Piter Quezada MD MD pc Lundborg-Gray, Maja, MD MD Tonie Alcala, DANIEL RN kmg1 Loly Miranda Gainslee gr2 Reanna Prasad, Layout Worker Unit Jame Keen RN RN nn1 Thais Ennis RN RN tm5 Corrections: (The following items were deleted from the chart) 03/23 20:12 19:30 Home Meds: Percocet 5-325 mg Oral tab 1 tab every 4-6 hours; nn1 tm5 20:12 19:30 Home Meds: Valium Oral; nn1 tm5 20:12 19:30 Home Meds: prednisone Oral; 1 pill daily for 5 days; nn1 tm5 03/24 00:09 03/23 23:55 Reassessment: Patient appears in no apparent distress at this time. Patient tm5 states symptoms have improved. pt resting with eyes closed, respirations easy, no s/s of any distress. tm5 MTDD
[2016-03-24 02:12] VITALS: BP 119/80
[2016-03-24 04:00] VITALS: BP 106/66
[2016-03-24 08:00] VITALS: BP 133/81
[2016-03-24 08:02] LABS: BASO % 0.5 % (0.0-1.0); EOS # 0.1 K/mm3 (0.0-0.50); EOS % 1.2 % (0.0-3.0); LARGE UNSTAINED CELL # 0.2 K/mm3 (0.0-0.4); LARGE UNSTAINED CELL % 1.8 % (0.0-4.0); LYMPH # 3.7 K/mm3 (1.5-6.5); LYMPH % 45.4 % (24.0-44.0); MEAN CORPUSCULAR HGB CONC 33.2 g/dl (32.0-36.5); MEAN CORPUSCULAR VOLUME 84.4 fl (80.0-96.0); MONO # 0.4 K/mm3 (0.0-0.8); MONO % 5.3 % (0.0-5.0); NEUTROPHILS # 3.7 K/mm3 (1.8-7.7); NEUTROPHILS % 45.8 % (36.0-66.0); PLATELET COUNT, AUTOMATED 198 k/mm3 (150-450); RED CELL DISTRIBUTION WIDTH 12.5 % (11.5-14.5); WHITE BLOOD COUNT 8.1 K/mm3 (4.0-10.0)
[2016-03-24 08:14] LABS: ANION GAP 9 MEQ/L (8-16); BLOOD UREA NITROGEN 15 MG/DL (7-18); CALCIUM LEVEL 9.3 MG/DL (8.5-10.1); CARBON DIOXIDE LEVEL 27 MEQ/L (21-32); CHLORIDE LEVEL 105 MEQ/L (98-107); CREATININE FOR GFR 1.13 MG/DL (0.70-1.30); GLOMERULAR FILTRATION RATE > 60.0 (>60); GLUCOSE, FASTING 94 MG/DL (70-105); POTASSIUM SERUM 4.2 MEQ/L (3.5-5.1); SODIUM LEVEL 141 MEQ/L (136-145)
[2016-03-24] MEDS: PANTOPRAZOLE 40MG TAB (PROTONIX) PO SCH (08:39)
[2016-03-24] MEDS: ENOXAPARIN 40 MG/0.4 ML SYRINGE (J1650) SC SCH (08:39)
[2016-03-24] MEDS: tiZANidine 4 MG TAB PO SCH ×2 (08:39→21:41)
[2016-03-24] MEDS: OMEGA-3 1050MG CAPSULE PO SCH (08:39)
[2016-03-24] MEDS: GABAPENTIN 400 MG CAP PO SCH ×3 (08:39→21:42)
[2016-03-24] MEDS: VITAMIN D 1,000 INTERNATIONAL UNITS TABLET PO SCH ×2 (08:39→21:42)
[2016-03-24] MEDS: KETOROLAC 30 MG/ML VIAL (J1885) IV PRN ×3 (08:40→21:41)
--- NOTE | 2016-03-24 11:50 | REP ---
MRI THORACIC SPINE WITH CONTRAST: HISTORY: Infarction. CONTRAST: ProHance 16 mL. COMPARISON: 03/23/2016. The spinal cord is normal in size and signal intensity. There is no abnormal enhancement. There is an old compression fracture of the T8 vertebral body with minimal height loss. IMPRESSION: Old T8 compression fracture with minimal height loss. Signed by Darell Doss MD 03/24/2016 12:08 P
[2016-03-24 16:00] VITALS: BP 116/70
--- NOTE | 2016-03-24 17:22 | CR ---
DATE OF CONSULTATION: 03/24/2016 CHIEF COMPLAINT: Thoracic pain and paresthesia, lumbar sacral pain paresthesia, left leg weakness/paresthesias. HISTORY OF PRESENT ILLNESS: Xu is a 25-year-old male admitted last night for complaints of increase in thoracic and low back pain as well as an increase in pelvic and left leg numbness. Also reporting episodes of urinary frequency. According to the history he stated at one point he had an episode of urinary incontinence this past week. Had thoracic epidural steroid injection number 2 at [facility] on March 08 and states that he began to have increase in hypersensitivity to light touch in the lower thoracic and LS spine and paraspinal region as well as an increase in saddle numbness and left leg pain and paresthesias. 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 Denies any precipitating event during deployment. Was started with pain management on [place] 2-3 months ago. He has tried multiple different medications without improvement in his pain. States he has been to the emergency room on few occasions after his second thoracic epidural for increased pain and paresthesias. Rating pain level as an 8/10. He has not had urinary or bowel incontinence today. No recent fever, illness or sudden weight loss. ALLERGIES: No known drug allergies (NKDA). PAST MEDICAL HISTORY: Left knee arthroscopy times two, reported left hip labral tear. FAMILY HISTORY: Denies significant family history. SOCIAL HISTORY: Lives with his . He is in the [employer] [address] process. Reports smoking. Reports occasional alcohol use. Denies illicit drug use. Has been in the times 3 years. Reports being diagnosed with posttraumatic stress disorder (PTSD) and traumatic brain injury (TBI). Denies suicidal or homicidal ideations. REVIEW OF SYSTEMS: 10-point review of systems is negative and otherwise what is stated in history of present illness (HPI). PHYSICAL EXAMINATION: Awake, alert, pleasant. No acute distress. He does not appear to be in pain. Cardiac - S1-S2 normal rate and rhythm. Respiratory: Lung sounds clear. Respirations nonlabored. Neuromuscular right leg 5/5. Normal sensation to light touch. Left leg muscle strength testing 1/5. Reporting numbness to light touch left leg in its entirety. Deep tendon reflex 4/4 bilaterally - hyperactive. Inspection of spine, marked hypersensitivity to light touch over lower thoracic spine and paraspinal and LS spine and paraspinal. Diagnostic imaging brain MRI 03/23/2016, impression: No intracranial pathology. Lumbar spine MRI 03/23/2016 multilevel disk bulging with no focal herniations. Canal and neural foraminal are patent. The thoracic spine MRI 03/24/2016 showing old T8 compression fracture with minimal height loss. Cervical MRI 03/23/2016 broad-based posterior disk bulges C3-C5 with no focal herniation. No neural foraminal stenosis. ASSESSMENT: 1. Thoracic back pain. 2. Low back pain. 3. Saddle paresthesia. DIAGNOSIS: Left leg paresthesia. PLAN: Recommend use of oxycodone 5/325 every 4 hours as needed for pain. Recommend trial of Soma 350 mg twice a day. Consider trial of Lyrica 75 mg twice a day. Further workup with neurology in regards to pain and paresthesia not consistent with imaging studies. MTDD
[2016-03-24] MEDS: PERCOCET 5MG/325MG TAB PO PRN (18:47)
[2016-03-24 20:00] VITALS: BP 129/72
[2016-03-24] MEDS: CARISOPRODOL 350 MG TAB PO SCH (21:42)
[2016-03-25] VITALS: BP 109/63
[2016-03-25] MEDS: PERCOCET 5MG/325MG TAB PO PRN ×4 (00:04→21:26)
[2016-03-25 07:18] LABS: MEAN CORPUSCULAR HEMOGLOBIN 27.3 pg (27.0-33.0); MEAN CORPUSCULAR HGB CONC 31.8 g/dl (32.0-36.5); MEAN CORPUSCULAR VOLUME 85.7 fl (80.0-96.0); RED CELL DISTRIBUTION WIDTH 12.6 % (11.5-14.5); WHITE BLOOD COUNT 7.6 K/mm3 (4.0-10.0)
[2016-03-25 07:32] LABS: ANION GAP 8 MEQ/L (8-16); BLOOD UREA NITROGEN 12 MG/DL (7-18); CALCIUM LEVEL 8.7 MG/DL (8.5-10.1); CARBON DIOXIDE LEVEL 26 MEQ/L (21-32); CHLORIDE LEVEL 108 MEQ/L (98-107); CREATININE FOR GFR 1.11 MG/DL (0.70-1.30); GLOMERULAR FILTRATION RATE > 60.0 (>60); GLUCOSE, FASTING 94 MG/DL (70-105); POTASSIUM SERUM 4.5 MEQ/L (3.5-5.1); SODIUM LEVEL 142 MEQ/L (136-145)
[2016-03-25 08:00] VITALS: BP 121/69
[2016-03-25] MEDS: tiZANidine 4 MG TAB PO SCH ×2 (08:38→21:23)
[2016-03-25] MEDS: OMEGA-3 1050MG CAPSULE PO SCH (08:38)
[2016-03-25] MEDS: GABAPENTIN 400 MG CAP PO SCH ×3 (08:38→21:23)
[2016-03-25] MEDS: PANTOPRAZOLE 40MG TAB (PROTONIX) PO SCH (08:38)
[2016-03-25] MEDS: VITAMIN D 1,000 INTERNATIONAL UNITS TABLET PO SCH ×2 (08:38→21:23)
[2016-03-25] MEDS: ENOXAPARIN 40 MG/0.4 ML SYRINGE (J1650) SC SCH (08:39)
[2016-03-25] MEDS: CARISOPRODOL 350 MG TAB PO SCH ×2 (09:00→21:23)
[2016-03-25] MEDS: KETOROLAC 30 MG/ML VIAL (J1885) IV PRN ×2 (11:27→23:20)
--- NOTE | 2016-03-25 13:17 | IPNPDOC ---
Subjective General Date Seen The patient was seen on 03/25/16. Subjective Chief Complaint/HPI The patient is a 25-year-old male admitted with a reason for visit of Back Pain. Events since last encounter slept a little better after starting oxycodone and soma. no urinary or bowel incontinence while in the hospital , seen by PT and cleared . no fever or chills , no chest pain or sob , no abdominal pain nausea or vomiting, says he has to time himself for urination. Objective Physical Examination General Exam: Positive: Alert, Cooperative, No Acute Distress ENT Exam: Positive: Atraumatic, Mucous membr. moist/pink Neck Exam: Negative: JVD Chest Exam: Positive: Clear to auscultation, Normal air movement Heart Exam: Positive: Normal S1, Normal S2, Rate Normal Abdomen Exam: Positive: Soft, Negative: Tenderness Extremity Exam: Positive: Normal pulses, Negative: Tenderness Neuro Exam: Positive: Normal Tone, Other (strength noted to be 5 out of 5 in the upper extremity is bilaterally, and 5 out of 5 on hip flexion, knee and ankle flexion/extension on the right lower extremity. 3 out of 5 strength noted in the left lower extremity on hip flexion, knee and ankle flexion/extension. Patient notes diminished sensation on the left lower extremity compared to the right on palpation.) Assessment /Plan Problems Problems: (1) Back pain Status: Acute Problem Text: all MRIs negative . seen by pain management MRIs do not match his symptoms. will consult neurology continue soma, tizanidine, percocet. will get bladder scan. Plan/VTE VTE Prophylaxis Ordered?: Yes VS, I&O, 24H, Fishbone Vital Signs/I&O Vital Signs Date Time Temp Pulse Resp B/P Pulse Ox O2 Delivery O2 Flow Rate FiO2 03/25/16 09:45 18 03/25/16 08:00 96.2 85 121/69 99 Room Air I&O- Last 24 Hours up to 6 AM 03/25/16 05:59 Intake Total 2640 ml Output Total 1150 ml Balance 1490 ml Laboratory Data 24H LABS Laboratory Tests 2 03/25/16 06:46: Anion Gap 8, Blood Urea Nitrogen 12, Creatinine 1.11, Sodium Level 142, Potassium Level 4.5, Chloride Level 108H, Carbon Dioxide Level 26, Calcium Level 8.7, Glomerular Filtration Rate > 60.0 CBC/BMP Laboratory Tests 03/25/16 06:46 Calcium Level 8.7, Red Blood Count 5.39, Mean Corpuscular Volume 85.7, Mean Corpuscular Hemoglobin 27.3, Mean Corpuscular Hemoglobin Concent 31.8 L, Red Cell Distribution Width 12.6 FUAD LINTON MD Mar 25, 2016 13:17
[2016-03-25 16:00] VITALS: BP 138/83
[2016-03-25 20:00] VITALS: BP 136/78
--- NOTE | 2016-03-26 03:10 | EDDOCDS ---
Physician Documentation [facility] Name: Xu Larios Age: 25 yrs Sex: Male : 1990 Arrival Date: 03/23/2016 Time: 19:19 Bed 14 Private MD: Dinesh GRANGER Disposition: 03/24 00:15 Critical Care: Critical care not applicable. pc Disposition: 03/24/16 00:19 Hospitalization ordered by Alan Santoro for Inpatient Admission. Preliminary diagnosis are Disturbances of skin sensation - LEs, Other specified urinary incontinence - r/o spinal cord stroke. - Bed requested for M PED. - Status is Inpatient Admission. tm5 - Condition is Stable. - Problem is an ongoing problem. - Symptoms are unchanged. Historical: - Allergies: No known drug Allergies; - Home Meds: 1. gabapentin 800 mg Oral tab 3 times per day 2. Fish Oil Oral 1000 mg daily 3. vitamin B2 1 tablet twice daily 4. Vitamin D3 1,000 unit oral tab twice a day 5. zolmitriptan 2.5 mg oral tab 1 tab every 8 hours as needed - PMHx: herniated discs; chronic back pain; Hypertension; - PSHx: Knee surgery- Left; - Social history: Smoking status: Patient uses tobacco products, heavy tobacco smoker. No barriers to communication noted, The patient speaks fluent Welsh, Speaks appropriately for age. - Family history: Not pertinent. - : The pt / caregiver states he / she is not on anticoagulants. Home medication list is obtained from the patient. - Exposure Risk Screening:: None identified. Vital Signs: 03/23 19:21 BP 134 / 79; Pulse 104; Resp 18 S; Temp 96.9(O); Pulse Ox 97% on R/A; Weight 82.1 kg / gr2 181 lbs (R); Height 5 ft. 7 in. (170.18 cm) (R); Pain 8/10; 03/24 01:37 BP 132 / 82; Pulse 74; Resp 18; Temp 97.9(O); Pulse Ox 98% on R/A; Pain 3/10; tm5 03/23 19:21 Body Mass Index 28.35 (82.10 kg, 170.18 cm) gr2 MDM: 03/23 20:58 IV Saline Lock ordered. ml 20:58 MRI Screening Tool - Place on chart, inform RN ordered. ml 21:00 -MRI-Brain without Ordered. EDMS 21:00 -MRI-Spine, Cervical without contrast Ordered. EDMS 21:00 -MRI-Spine,Thoracic without contrast Ordered. EDMS 21:00 Chest, 1 View Ordered. EDMS 21:01 BED REQUEST+ADM ordered. EDMS 21:01 Financial registration complete. zo 21:05 MRI Screening Tool - Place on chart, inform RN complete. kb5 21:20 CBC with Diff Ordered. EDMS 21:20 MED Profile Ordered. EDMS 21:20 TSH with Free T4 Ordered. EDMS 21:20 C Reactive Protein Ordered. EDMS 21:20 ESR Ordered. EDMS 21:20 -MRI-Spine, Lumbar without contrast Ordered. EDMS 21:28 LORazepam 1 mg IVP once ordered. pc 21:33 [facility] Payment Agreement was scanned into [employer] and attached to record. zo 22:00 CBC with Diff Reviewed. pc 22:00 MED Profile Reviewed. pc 22:00 TSH with Free T4 Reviewed. pc 22:00 C Reactive Protein Reviewed. pc 22:00 ESR Reviewed. pc 03/24 00:15 Test interpretation: MRI - interpreted by Radiologist and personally reviewed, Brain pc (MRI) - No acute disease C-Spine (MRI) - mild disc bulges without canal or foramen narrowing, L-Spine MRI mild disc bulges without canal or foramen narrowing, T-Spine: compression of superior endplate T9-11, canal and foramen patent. The patient has been re-examined and re-evaluated. There is no appreciated change of the patient's symptoms at this time. Physician consultation: Dr. Alan Santoro was contacted at 00:16, regarding admission, and will see patient in ED. 00:15 Physician consultation: Dr. Cathy Song was contacted at 00:16, regarding patient's pc condition, will review the MRIs and call back. Disposition: The historical points, examination findings, and any diagnostic results supporting the provided diagnosis, were discussed with the patient or legal guardian. The need for further work-up and/or treatment in the hospital was explained. 00:48 Physician consultation: Dr. Cathy Song was contacted at 00:48, regarding patient's pc condition, and he agrees with the readings, that the MRIs are essentially unremarkable. He advises that a MRI of T-spine with contrast following cord stroke protocol be performed in the morning. Dr. Santoro was advised of his recommendation . 01:12 MRI Spine, Thoracic with con Ordered. EDMS 01:13 PHYSICAL THERAPY EVAL & TREAT ordered. EDMS 01:14 Admission / Observation Status ordered. EDMS 01:14 REGULAR DIET ordered. EDMS 13:32 T-Sheet-- Draft Copy was scanned into [employer] and attached to record. gb Administered Medications: 03/23 21:31 Drug: LORazepam 1 mg [lorazepam 2 mg/mL injection solution (0.5 mL)] Route: IVP; Site: tm5 right forearm; 22:26 Follow up: Response: Pt left department before re-evaluation is appropriate tm5 Signatures: Dispatcher [employer] EDMS Piter Quezada MD MD pc Lundborg-Gray, Maja, MD MD ml Param, [place], Reg Reg gb [place], Zoeann zo Daniel, Adán, BLENDER BLENDER kb5 Jame Meyers RN RN nn Thais Ennis RN RN tm5 The chart was reviewed and I authenticate all verbal orders and agree with the evaluation and treatment provided.Corrections: (The following items were deleted from the chart) 20:12 19:30 Home Meds: Percocet 5-325 mg Oral tab 1 tab every 4-6 hours; [email or web address] 20:12 19:30 Home Meds: Valium Oral; [email or web address] 20:12 19:30 Home Meds: prednisone Oral; 1 pill daily for 5 days; [email or web address] Attachments: 21:33 [facility] Payment Agreement zo 03/24 13:32 T-Sheet-- Draft Copy gb Chart Complete [facility]
--- NOTE | 2016-03-26 03:10 | EDDOCDS ---
Nurse's Notes [facility] Name: Xu Larios Age: 25 yrs Sex: Male : 1990 Arrival Date: 03/23/2016 Time: 19:19 Bed 14 Private MD: MNDinesh MEIER Diagnosis: Disturbances of skin sensation-LEs;Other specified urinary incontinence-r/o spinal cord stroke Presentation: 03/23 19:25 Presenting complaint: Patient states: he has been seen 3 times for the same, patient nn1 states he received spinal injection on 03/08/16. States he has had no feeling in left leg, saddle numbness since injection. Last night reports he began having incontinence, reports he has had no episodes of incontinence today but has had urinary retention. Acute neurological deficits are present. The charge nurse has been notified. 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 Reports compression deformities of spine. Adult Sepsis Screening: The patient does not have new or worsening altered mentation. Patient's respiratory rate is less than 22. Systolic blood pressure is greater than 100. Patient has a qSOFA score of 0- Negative Sepsis Screen. Suicide/Homicide risk assessment- the patient denies having any suicidal and/or homicidal ideations and does not present with any other emotional, behavioral or mental health complaints. 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 Transition of care: patient was not received from another setting of care. 19:25 Acuity: KIM Level 3 nn1 19:25 Method Of Arrival: Walkin/Carried/Asstd nn1 Triage Assessment: 19:31 General: Appears in no apparent distress, uncomfortable, Behavior is appropriate for nn1 age, cooperative. Pain: Location: back Pain currently is 8 out of 10 on a pain scale. Pain began 2 weeks ago following injection. HIV screening NA for this visit Offered previously. The patient is triaged at the bedside. See Assessment in Nurses Notes section of ED record. Neurological: Level of Consciousness is awake, alert, Reports numbness. Respiratory: No deficits noted. : Reports incontinence 1 episode yesterday. Musculoskeletal: Circulation, motion, and sensation intact Capillary refill < 3 seconds Range of motion intact in all extremities. Historical: - Allergies: No known drug Allergies; - Home Meds: 1. gabapentin 800 mg Oral tab 3 times per day 2. Fish Oil Oral 1000 mg daily 3. vitamin B2 1 tablet twice daily 4. Vitamin D3 1,000 unit oral tab twice a day 5. zolmitriptan 2.5 mg oral tab 1 tab every 8 hours as needed - PMHx: herniated discs; chronic back pain; Hypertension; - PSHx: Knee surgery- Left; - Social history: Smoking status: Patient uses tobacco products, heavy tobacco smoker. No barriers to communication noted, The patient speaks fluent Albanian, Speaks appropriately for age. - Family history: Not pertinent. - : The pt / caregiver states he / she is not on anticoagulants. Home medication list is obtained from the patient. - Exposure Risk Screening:: None identified. Screenin:50 Screening information is obtained from the patient. Fall risk: No risks identified. tm5 Assistance ADL's: requires no assistance with activities of daily living. Abuse/DV Screen: The patient / caregiver reports he/she is: not in a situation that causes fear, pain or injury. Nutritional screening: No deficits noted. Advance Directives: There is no active DNR order. home support is adequate. Assessment: 20:05 General: Appears in no apparent distress, Behavior is appropriate for age, cooperative. tm5 Pain: Location: lumbar area, left low back and right low back Pain currently is 8 out of 10 on a pain scale. Quality of pain is described as sharp, shooting. 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 Gait is steady, Speech is normal, Facial symmetry appears normal, Facial symmetry: tongue is midline, Pupils are PERRLA, Numbness in left foot and left leg Reports Back Pain numbness weakness numbness is to left side per pt . Respiratory: Airway is patent Respiratory effort is even, unlabored, Respiratory pattern is regular, symmetrical, Breath sounds are clear bilaterally. GI: Abdomen is flat, non- distended Bowel sounds present X 4 quads. : Reports incontinence one episode of urinary incontinence last night while sleeping pt also states that he has from time to time the inability to void or his urine "trickles out", pt also states that he can't ever feel himself move his bowels either. Derm: Skin is pink, warm & dry. Musculoskeletal: Reports weakness in left foot, left arm and left leg numbness in left foot and left leg pain in back incontinence of bowel or bladder, problems with urination. 21:25 Reassessment: Patient appears in no apparent distress at this time. no changes in tm5 assessment, MRI screen completed & handed to charge gang weigher . 21:31 General: medicated per orders for pt complains of pain in his back & asked for pain tm5 medications before he lies down for long period of time in MRI. 23:55 Reassessment: Patient appears in no apparent distress at this time. Patient states tm5 symptoms have improved. pt resting with eyes closed, respirations easy, no s/s of any distress. 03/24 01:37 General: Appears in no apparent distress, Behavior is appropriate for age, cooperative. tm5 Pain: Location: back Pain currently is 3 out of 10 on a pain scale. 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 Weakness in left hand's) leg(s) foot/feet Gait is steady, Speech is normal, Facial symmetry appears normal, Facial symmetry: tongue is midline, Pupils are PERRLA, Numbness in left foot and left leg. Respiratory: Airway is patent Respiratory effort is even, unlabored, Respiratory pattern is regular, symmetrical, Breath sounds are clear bilaterally. Vital Signs: 03/23 19:21 BP 134 / 79; Pulse 104; Resp 18 S; Temp 96.9(O); Pulse Ox 97% on R/A; Weight 82.1 kg gr2 (R); Height 5 ft. 7 in. (170.18 cm) (R); Pain 8/10; 03/24 01:37 BP 132 / 82; Pulse 74; Resp 18; Temp 97.9(O); Pulse Ox 98% on R/A; Pain 3/10; tm5 03/23 19:21 Body Mass Index 28.35 (82.10 kg, 170.18 cm) gr2 Vitals: 03/23 19:21 Log In Time: March 23, 2016 at 19:21. RN notified that patient meets Red Flag gr2 criteria. ED Course: 19:20 Patient visited by Melony Polanco. gr2 19:20 Patient moved to Waiting gr2 19:21 [facility] gr2 19:25 Patient visited by Melony Polanco. gr2 19:25 Patient moved to Pre RCE gr2 19:28 Triage Initiated nn1 19:41 Patient moved to 14 kmg1 20:12 Awaiting ED physician evaluation. tm5 20:35 Thaddeus Buck MD is Attending Physician. ml 20:35 Patient visited by Thaddeus Buck MD. ml 20:36 Patient visited by Thais Ennis RN. tm5 20:36 ED physician to see patient. tm5 21:14 Attending Physician role handed off by Thaddeus Buck MD pc 21:14 Piter Quezada MD is Attending Physician. pc 21:15 Inserted saline lock: 18 gauge in right forearm and blood collected. The patient tm5 tolerated the procedure well. Labs drawn. (by ED staff). Held in ED. 21:16 Portable x-ray done. tm5 21:24 Patient visited by Thais Ennis RN. tm5 21:31 Patient moved to MRI. tm5 21:33 [facility], [facility]1983 Payment Agreement was scanned into [employer] and attached to record. zo 21:46 Patient moved to MRI jlm 23:15 Patient moved back from MRI. tm5 23:18 -MRI-Brain without Returned. EDMS 23:31 Patient visited by Thais Ennis RN. tm5 23:49 Patient moved to 14 jlm 23:53 Patient visited by Thais Ennis,DANIEL. tm5 02/09 00:08 Patient visited by Thais Ennis,DANIEL. tm5 00:[address] Santoro. tm5 00:13 -MRI-Spine, Cervical without contrast Returned. EDMS 00:13 -MRI-Spine,Thoracic without contrast Returned. EDMS 00:13 -MRI-Spine, Lumbar without contrast Returned. EDMS 00:19 Alan Santoro is Hospitalizing Provider. pc 01:37 Patient visited by Thais Ennis RN. tm5 01:37 Awaiting transfer to admission bed . tm5 01:37 The patient / caregiver is instructed regarding the plan of care and ED course. tm5 01:37 No procedures done that require assistance. tm5 01:48 Patient visited by Thais Ennis RN. tm5 01:48 Report given to Lolis SANCHEZ on PEDS floor, ready for pt's admission to the floor. tm5 13:32 T-Sheet-- Draft Copy was scanned into [employer] and attached to record. gb Administered Medications: 03/23 21:31 Drug: LORazepam 1 mg [lorazepam 2 mg/mL injection solution (0.5 mL)] Route: IVP; Site: 5 right forearm; 22:26 Follow up: Response: Pt left department before re-evaluation is appropriate tm5 Order Results: Lab Order: CBC with Diff; SPEC'M 03/23/16 21:14 Test: WHITE BLOOD COUNT; Value: 11.7; Range: 4.0-10.0; Abnormal: Above high normal; Units: K/mm3; Status: F Test: RED BLOOD COUNT; Value: 5.79; Range: 4.30-6.10; Units: M/mm3; Status: F Test: HEMOGLOBIN; Value: 16.0; Range: 14.0-18.0; Units: g/dl; Status: F Test: HEMATOCRIT; Value: 48.6; Range: 42.0-52.0; Units: %; Status: F Test: MEAN CORPUSCULAR VOLUME; Value: 83.9; Range: 80.0-96.0; Units: fl; Status: F Test: MEAN CORPUSCULAR HEMOGLOBIN; Value: 27.7; Range: 27.0-33.0; Units: pg; Status: F Test: MEAN CORPUSCULAR HGB CONC; Value: 33.0; Range: 32.0-36.5; Units: g/dl; Status: F Test: RED CELL DISTRIBUTION WIDTH; Value: 12.6; Range: 11.5-14.5; Units: %; Status: F Test: PLATELET COUNT, AUTOMATED; Value: 231; Range: 150-450; Units: k/mm3; Status: F Test: NEUTROPHILS %; Value: 52.6; Range: 36.0-66.0; Units: %; Status: F Test: LYMPH %; Value: 38.3; Range: 24.0-44.0; Units: %; Status: F Test: MONO %; Value: 6.0; Range: 0.0-5.0; Abnormal: Above high normal; Units: %; Status: F Test: EOS %; Value: 1.1; Range: 0.0-3.0; Units: %; Status: F Test: BASO %; Value: 0.5; Range: 0.0-1.0; Units: %; Status: F Test: LARGE UNSTAINED CELL %; Value: 1.5; Range: 0.0-4.0; Units: %; Status: F Test: NEUTROPHILS #; Value: 6.1; Range: 1.8-7.7; Units: K/mm3; Status: F Test: LYMPH #; Value: 4.5; Range: 1.5-6.5; Units: K/mm3; Status: F Test: MONO #; Value: 0.7; Range: 0.0-0.8; Units: K/mm3; Status: F Test: EOS #; Value: 0.1; Range: 0.0-0.50; Units: K/mm3; Status: F Test: BASO #; Value: 0.1; Range: 0.0-0.2; Units: K/mm3; Status: F Test: LARGE UNSTAINED CELL #; Value: 0.2; Range: 0.0-0.4; Units: K/mm3; Status: F Lab Order: [facility]; [facility]' 03/23/16 21:14 Test: GLUCOSE, FASTING; Value: 90; Range: 70-105; Units: MG/DL; Status: F Test: BLOOD UREA NITROGEN; Value: 14; Range: 7-18; Units: MG/DL; Status: F Test: CREATININE FOR GFR; Value: 1.01; Range: 0.70-1.30; Units: MG/DL; Status: F Test: GLOMERULAR FILTRATION RATE; Value: > 60.0; Range: >60; Status: F Test: SODIUM LEVEL; Value: 140; Range: 136-145; Units: MEQ/L; Status: F Test: POTASSIUM SERUM; Value: 3.8; Range: 3.5-5.1; Units: MEQ/L; Status: F Test: CHLORIDE LEVEL; Value: 105; Range: 98-107; Units: MEQ/L; Status: F Test: CARBON DIOXIDE LEVEL; Value: 25; Range: 21-32; Units: MEQ/L; Status: F Test: ANION GAP; Value: 10; Range: 8-16; Units: MEQ/L; Status: F Test: CALCIUM LEVEL; Value: 9.0; Range: 8.5-10.1; Units: MG/DL; Status: F Test Note: ; Units are mL/min/1.73 m2 Chronic Kidney Disease Staging per NKF: Stage I & II GFR >=60 Normal to Mildly Decreased Stage III GFR 30-59 Moderately Decreased Stage IV GFR 15-29 Severely Decreased Stage V GFR <15 Very Little GFR Left ESRD GFR <15 on PI[facility] STRINGER Lab Order: TSH with Free T4; SPEC' 03/23/16 21:14 Test: THYROID STIMULATING HORMONE; Value: 1.010; Range: 0.358-3.740; Units: uIU/ML; Status: F Test: FREE T4; Value: 1.21; Range: 0.76-1.46; Units: NG/DL; Status: F Lab Order: C Reactive Protein; SPEC' 03/23/16 21:14 Test: C REACTIVE PROTEIN QUANTITATIV; Value: < 0.30; Range: 0.00-0.30; Units: MG/DL; Status: F Lab Order: ESR; SPEC' 03/23/16 21:14 Test: ERYTHROCYTE SEDIMENTATION RATE; Value: 2; Range: 0-15; Units: mm/hr; Status: F Radiology Order: -MRI-Brain without Test: -MRI-Brain without REASON FOR EXAMINATION: saddle anesthesia, back pain; ; CLINICAL HISTORY: Anesthesia since back injection; TECHNIQUE: MRI of the brain was performed without administration of intravenous contrast material. T1; spine echo, T2 fast spin echo and FLAIR sequences were obtained in sagittal, axial and coronal plane; s.; FINDINGS:; The sella and parasellar regions are unremarkable in appearance. The corpus callosum and cerebellar t; onsils are of normal configuration and position. There are no intra or extra-axial collections. There; is no mass effect or midline shift. There is no evidence of hematoma formation. There is no hydrocep; halus.; The brain stem shows no mass effects, infarcts or hemorrhage. There are no cerebellopontine tumors. T; he acoustic nerves are symmetrical. No cerebellar intra-axial pathology delineated. The fourth ventri; villa and aqueduct are normal. No abnormalities of the optic nerves are identified. No dural or subdura; l masses or collections are detected.; The visualized arterial structures demonstrate normal appearing flow voids. The VII and VIII nerve bu; ndles are visualized and are unremarkable in appearance. There are no suspicious signal abnormalities; within the infra or supratentorial space.; IMPRESSION:; No acute intracranial pathology.; ; ; Radiology Order: -MRI-Spine, Cervical without contrast Test: -MRI-Spine, Cervical without contrast REASON FOR EXAMINATION: saddle anesthe, back pain, progressive inability to walk; ; History: PT HAD INJECTION DONE IN [place] ON 03/08 ON HIS THORACIC SPINE AND SINCE THEN HAS HAD MRI O; F THE T/L-SPING W/WO CONTRAST, SINCE LAST WEEK THE URINARY PROBLEMS HAVE INCREASE, WELL THE VANDANA; N IN BACK AND NUMBNESS IN LT LEG; Procedure: Multiple high-resolution T1 and T2 weighted sequences were obtained in the axial and sagit; marge planes including sagittal sequences in flexion and extension.; Findings: The spinal cord is of normal size, configuration, position, and signal intensity. There is; no evidence of intra-axial or extra-axial masses. There is no significant marrow signal alteration. D; isc spaces are preserved.; C3-C5 broad-based posterior disc bulges noted with no focal herniation. Remaining intervertebral disc; spaces demonstrate no significant bulges or herniation. Neural foramina and spinal canal appear vazquez; nt at all levels.; Impression:; 1. No acute fracture.; 2. C3-C5 broad-based posterior disc bulges noted with no focal herniation.; Thank you for your kind referral of this patient.; Thank you for your kind referral of this patient.; ; Radiology Order: -MRI-Spine,Thoracic without contrast Test: -MRI-Spine,Thoracic without contrast REASON FOR EXAMINATION: spT8 injection, progressive anesthesia, inability to walk; ; History: PT HAD INJECTION DONE IN [place] ON 03/08 ON HIS THORACIC SPINE AND SINCE THEN HAS HAD MRI O; F THE T/L-SPING W/WO CONTRAST, SINCE LAST WEEK THE URINARY PROBLEMS HAVE INCREASE, WELL THE VANDANA; N IN BACK AND NUMBNESS IN LT LEG; COMPARISON: None; TECHNIQUE: Magnetic resonance imaging of the thoracic spine was performed with a standard multiplanar; multisequence protocol.; FINDINGS:; There are mild T9-T11 mid superior endplate compression deformities without edema likely chronic. Nor; mal remaining thoracic vertebral body height and alignment on this supine, non-weight bearing exam.; Vertebral body marrow signal is normal. No marrow replacement or destruction.; The spinal cord and conus medullaris have normal diameter and signal intensity and show no expansion; or compression.; Intervertebral disc spaces have normal height and signal intensity. There is no herniated nucleus pul; posus, canal or foraminal stenosis.; No paraspinal masses or collections.; IMPRESSION:; 1. There are mild T9-T11 mid superior endplate compression deformities without edema likely chronic.; 2. No evidence of herniated nucleus pulposus, canal or foraminal stenosis. The spinal canal demonstra; annemarie grossly uniform signal intensity with no evidence of space-occupying mass or fluid collection.; Thank you for your kind referral of this patient; ; Radiology Order: -MRI-Spine, Lumbar without contrast Test: -MRI-Spine, Lumbar without contrast REASON FOR EXAMINATION: saddle anesthesia; ; HISTORY : PT HAD INJECTION DONE IN [place] ON 03/08 ON HIS THORACIC SPINE AND SINCE THEN HAS HAD MRI; OF THE T/L-SPING W/WO CONTRAST, SINCE LAST WEEK THE URINARY PROBLEMS HAVE INCREASE, WELL THE P; AIN IN BACK AND NUMBNESS IN LT LEG; TECHNIQUE: Fast spin echo T2 and spin echo T1 sequences were obtained in axial and sagittal planes.; FINDINGS:; The visualized osseous elements are intact with no evidence of fracture or spondylolisthesis. The mar; row signals are within normal limits. There is straightening of normal lordotic curvature, compatible; with muscle spasm. The conus medullaris and cauda equina are within normal limits.; Evaluation of individual levels reveals the following:; At L5-S1, mild broad based disk bulge is present. Canal and neural foramina remain patent.; At L4-L5, mild broad based disk bulge is present. Canal and neural foramina remain patent.; At L3-L4, mild broad-based disc bulge is present. Canal and neural foramina remain patent.; At L2-L3, there is no disk herniation or bulge. Canal and neural foramina remain patent.; At L1-L2, there is no disk herniation or bulge. Canal and neural foramina remain patent.; IMPRESSION:; 1. No acute fracture, spondylolisthesis, or osseous lesion.; 2. Broad based disk bulges at L3-S1 with no focal herniation. Canal and neural foraminal are patent.; ; Thank you for your kind referral of this patient.; ; Outcome: 03/24 00:19 Decision to Hospitalize by Provider. pc 01:48 Discharge Assessment: Patient awake, alert and oriented x 3. No cognitive and/or tm5 functional deficits noted. Patient verbalized understanding of disposition instructions. patient administered narcotics - no. The following High Risk Discharge criteria are identified: None. Admitted to Pediatrics accompanied by tech, via stretcher, with chart. Condition: good Condition: stable. MRI Study completed. Property :Personal belongings accompany Pt. 02:09 Patient left the ED. tm5 Signatures: Dispatcher [employer] EDPiter Sawyer MD MD pc Lundborg-Gray, Maja, MD MD ml Tonie Alcala, RN RN kmg1 Ashanti Virgen, Zoran Reg Loly Pike Gainslee gr2 Reanna Prasad, Pewter Finisher Unit Jame KeenRN RN nn1 Thais Ennis,DANIEL RN tm5 Corrections: (The following items were deleted from the chart) 03/23 20:12 19:30 Home Meds: Percocet 5-325 mg Oral tab 1 tab every 4-6 hours; nn1 tm5 20:12 19:30 Home Meds: Valium Oral; nn1 tm5 20:12 19:30 Home Meds: prednisone Oral; 1 pill daily for 5 days; nn1 tm5 03/24 00:09 03/23 23:55 Reassessment: Patient appears in no apparent distress at this time. Patient tm5 states symptoms have improved. pt resting with eyes closed, respirations easy, no s/s of any distress. tm5 Chart Complete MTDD
--- NOTE | 2016-03-26 03:10 | EDDOCDS ---
Physician Documentation [facility] Name: Xu Larios Age: 25 yrs Sex: Male : 1990 Arrival Date: 03/23/2016 Time: 19:19 Bed 14 Private MD: Dinesh GRANGER Disposition: 03/24 00:15 Critical Care: Critical care not applicable. pc Disposition: 03/24/16 00:19 Hospitalization ordered by Alan Santoro for Inpatient Admission. Preliminary diagnosis are Disturbances of skin sensation - LEs, Other specified urinary incontinence - r/o spinal cord stroke. - Bed requested for M PED. - Status is Inpatient Admission. tm5 - Condition is Stable. - Problem is an ongoing problem. - Symptoms are unchanged. Historical: - Allergies: No known drug Allergies; - Home Meds: 1. gabapentin 800 mg Oral tab 3 times per day 2. Fish Oil Oral 1000 mg daily 3. vitamin B2 1 tablet twice daily 4. Vitamin D3 1,000 unit oral tab twice a day 5. zolmitriptan 2.5 mg oral tab 1 tab every 8 hours as needed - PMHx: herniated discs; chronic back pain; Hypertension; - PSHx: Knee surgery- Left; - Social history: Smoking status: Patient uses tobacco products, heavy tobacco smoker. No barriers to communication noted, The patient speaks fluent French, Speaks appropriately for age. - Family history: Not pertinent. - : The pt / caregiver states he / she is not on anticoagulants. Home medication list is obtained from the patient. - Exposure Risk Screening:: None identified. Vital Signs: 03/23 19:21 BP 134 / 79; Pulse 104; Resp 18 S; Temp 96.9(O); Pulse Ox 97% on R/A; Weight 82.1 kg / gr2 181 lbs (R); Height 5 ft. 7 in. (170.18 cm) (R); Pain 8/10; 03/24 01:37 BP 132 / 82; Pulse 74; Resp 18; Temp 97.9(O); Pulse Ox 98% on R/A; Pain 3/10; tm5 03/23 19:21 Body Mass Index 28.35 (82.10 kg, 170.18 cm) gr2 MDM: 03/23 20:58 IV Saline Lock ordered. ml 20:58 MRI Screening Tool - Place on chart, inform RN ordered. ml 21:00 -MRI-Brain without Ordered. EDMS 21:00 -MRI-Spine, Cervical without contrast Ordered. EDMS 21:00 -MRI-Spine,Thoracic without contrast Ordered. EDMS 21:00 Chest, 1 View Ordered. EDMS 21:01 BED REQUEST+ADM ordered. EDMS 21:01 Financial registration complete. zo 21:05 MRI Screening Tool - Place on chart, inform RN complete. kb5 21:20 CBC with Diff Ordered. EDMS 21:20 MED Profile Ordered. EDMS 21:20 TSH with Free T4 Ordered. EDMS 21:20 C Reactive Protein Ordered. EDMS 21:20 ESR Ordered. EDMS 21:20 -MRI-Spine, Lumbar without contrast Ordered. EDMS 21:28 LORazepam 1 mg IVP once ordered. pc 21:33 [facility] Payment Agreement was scanned into [employer] and attached to record. zo 22:00 CBC with Diff Reviewed. pc 22:00 MED Profile Reviewed. pc 22:00 TSH with Free T4 Reviewed. pc 22:00 C Reactive Protein Reviewed. pc 22:00 ESR Reviewed. pc 03/24 00:15 Test interpretation: MRI - interpreted by Radiologist and personally reviewed, Brain pc (MRI) - No acute disease C-Spine (MRI) - mild disc bulges without canal or foramen narrowing, L-Spine MRI mild disc bulges without canal or foramen narrowing, T-Spine: compression of superior endplate T9-11, canal and foramen patent. The patient has been re-examined and re-evaluated. There is no appreciated change of the patient's symptoms at this time. Physician consultation: Dr. Alan Santoro was contacted at 00:16, regarding admission, and will see patient in ED. 00:15 Physician consultation: Dr. Cathy Song was contacted at 00:16, regarding patient's pc condition, will review the MRIs and call back. Disposition: The historical points, examination findings, and any diagnostic results supporting the provided diagnosis, were discussed with the patient or legal guardian. The need for further work-up and/or treatment in the hospital was explained. 00:48 Physician consultation: Dr. Cathy Song was contacted at 00:48, regarding patient's pc condition, and he agrees with the readings, that the MRIs are essentially unremarkable. He advises that a MRI of T-spine with contrast following cord stroke protocol be performed in the morning. Dr. Santoro was advised of his recommendation . 01:12 MRI Spine, Thoracic with con Ordered. EDMS 01:13 PHYSICAL THERAPY EVAL & TREAT ordered. EDMS 01:14 Admission / Observation Status ordered. EDMS 01:14 REGULAR DIET ordered. EDMS 13:32 T-Sheet-- Draft Copy was scanned into [employer] and attached to record. gb Administered Medications: 03/23 21:31 Drug: LORazepam 1 mg [lorazepam 2 mg/mL injection solution (0.5 mL)] Route: IVP; Site: tm5 right forearm; 22:26 Follow up: Response: Pt left department before re-evaluation is appropriate tm5 Signatures: Dispatcher [employer] EDMS Piter Quezada MD MD pc Lundborg-Gray, Maja, MD MD ml Param, Ashanti, Reg Reg gb Wilmerding, Zoeann zo Daniel, Adán, INTELLIGENCE CLERK INTELLIGENCE CLERK kb5 Jame Meyers RN RN nn Thais Ennis RN RN tm5 The chart was reviewed and I authenticate all verbal orders and agree with the evaluation and treatment provided.Corrections: (The following items were deleted from the chart) 20:12 19:30 Home Meds: Percocet 5-325 mg Oral tab 1 tab every 4-6 hours; [facility]5 20:12 19:30 Home Meds: Valium Oral; [facility]5 20:12 19:30 Home Meds: prednisone Oral; 1 pill daily for 5 days; [facility] Attachments: 21:33 [facility] Payment Agreement zo 03/24 13:32 T-Sheet-- Draft Copy gb Chart Complete [facility]
[2016-03-26 04:00] VITALS: BP 100/60
[2016-03-26] MEDS: PERCOCET 5MG/325MG TAB PO PRN ×3 (06:07→17:20)
[2016-03-26 08:00] VITALS: BP 117/65
[2016-03-26] MEDS: ENOXAPARIN 40 MG/0.4 ML SYRINGE (J1650) SC SCH (08:24)
[2016-03-26] MEDS: tiZANidine 4 MG TAB PO SCH (08:25)
[2016-03-26] MEDS: GABAPENTIN 400 MG CAP PO SCH ×2 (08:25→15:37)
[2016-03-26] MEDS: KETOROLAC 30 MG/ML VIAL (J1885) IV PRN ×2 (08:25→14:52)
[2016-03-26] MEDS: VITAMIN D 1,000 INTERNATIONAL UNITS TABLET PO SCH (08:25)
[2016-03-26] MEDS: PANTOPRAZOLE 40MG TAB (PROTONIX) PO SCH (08:25)
[2016-03-26] MEDS: OMEGA-3 1050MG CAPSULE PO SCH (08:25)
[2016-03-26] MEDS: CARISOPRODOL 350 MG TAB PO SCH (08:25)
--- NOTE | 2016-03-26 13:20 | CR ---
DATE OF CONSULTATION: 03/26/2016 REASON FOR CONSULTATION: 1. Left lower extremity paresthesia. 2. Saddle anesthesia. The patient is a 25-year-old male with history of a compression fracture of T8, which is old, presenting with complaints of inability to feel any form or degree of sensation in his entire left lower extremity from his hip down. The patient states he cannot feel any sensation, whether it be deep palpation, light touch, temperature, vibration, joint position. The patient states that this has been ongoing now for several weeks. He states that ever since he had an epidural injection to his thoracic spine the symptoms have started. Despite this, the patient still is able to ambulate. The patient was in the bathroom when I approached the room. I knocked on the door. No one responded. I stood in the hallway, and the patient then exited the bathroom and walked with normal stride towards the bed. When he saw that I was there, the patient started to limp slightly. The patient was asked to assist stand from a seated the patient can demonstrate a very severe difficulty in doing so, although he was able to finally do it. There is seems to be some overall strength of his injury to stand. The patient was able to ambulate reasonably well for me to fluid the through the fall while walking out of the room. The patient was asked to stand from a seated position and demonstrated very severe difficulty in doing so, although he was able to finally do it. There seemed to be some over embellishment of his inability to stand. The patient was then able to then ambulate reasonably well for me through the lenz while walking out of the room. The patient was able to then turn around and come back and sit back into the bed. He was demonstrating intermittent activation of his left lower extremity. The patient had astasia-abasia when trying to stand on both of his balls of his feet. He attributed this to the patient having severe back pain. The patient does not demonstrate any symptoms suggestive of enduring any pain when pushing down on his shoulders, adding, pressure through his spine. He states that he has pain when he tries to flex his left hip only in his back. The patient was able to keep his eyes closed and identify proper joint position sensations at the ankle and the knee. The patient was then trying to argue and state that he later did not feel anything, though he accurately did describe joint position. The patient becomes tearful and states that he does not know what is going wrong with him and he has been told by other doctors that he is full of it. I suggested that the patient should be seen by psychiatry for evaluation of either conversion disorder or malingering. The patient did have MRI of the brain, cervical spine, thoracic spine and lumbosacral spine, which did not reveal any sort of pathology that would contribute towards complete and sensory loss of the left lower extremity. Usually, patients who have this degree of subjective dense sensory loss are unable to ambulate due to lack of feeling and ability to know where their leg is in space. The patient does complain of pain and states that when his labral tear bothers him or his back bothers him, his legs may give out in pain. On one instance, he woke up with urinary incontinence. He has been refusing postvoid residual urethral catheterizations by the primary team, which would identify that the bladder is probably emptying normally. Although this cannot be for certain without a postvoid residual. PAST MEDICAL HISTORY: 1. Chronic back pain. 2. Left labral hip tear. 3. Left knee arthroscopic surgery times two. FAMILY HISTORY: Noncontributory. SOCIAL HISTORY: Patient smokes tobacco. Drinks alcohol on occasion. Denies drug use. He has been in the since to 2012. REVIEW OF SYSTEMS: Positive only for back pain and inability to feel his lower extremity on the left side at all. PHYSICAL EXAMINATION: Blood pressure is 138/83, pulse rate 89, respiratory rate is 18, oxygenation is 98% on room air, temperature 97.4 degrees Fahrenheit. Current height is 5 feet 7 inches. Current weight is 82 kg. The patient is alert, oriented to person, place and time. Speech, language comprehension, repetition are intact. Pupils are 3 mm round and reactive to light. Deep tendon reflexes are 2 in the upper extremities, 2+ at the patellas and Achilles. Babinski signs are absent. There is no clonus at the ankles. The patient describes dense sensory loss of lower extremity, though admits to having joint position sense intact at the ankle and the knee. Romberg testing is negative. The patient is able to ambulate with raising of his toes and flexing of the ankle appropriately with each step. The patient winces in pain when he tries to ambulate he states. The patient does not demonstrate any sense of pain with facial expressions when pushing down on his shoulders and spine. Coordination reveals normal [id number]. ASSESSMENT: 1. Low back pain. 2. Old compression fracture of T8. SUBJECTIVE: 1. Left dense sensory loss of the lower extremity. 2. Cannot entirely exclude conversion disorder or malingering. PLAN: 1. At this point in time, I recommend the patient be evaluated by psychiatry for evaluation of conversion disorder versus malingering. The patient's dense sensory loss does not have any etiology arising from the brain nor his spinal cord or lumbosacral roots at this time. The patient demonstrates functional ability to ambulate despite complaints of such dense sensory loss which is most times incompatible. 2. Continue with pain management. 3. Patient has already had electromyography (EMG) nerve conduction studies of the left lower extremity which have been normal in the recent past. This does not necessarily need to be repeated any time soon. He should followup with his orthopedic surgeon for the patient's wishes to undergo surgery for his T8 vertebral fracture, which is purely an elective surgery. Thank you for the consultation.
[2016-03-26] MEDS ORDERED: PERCOCET PO (13:54)
[2016-03-26] MEDS ORDERED: SOMA350T PO (13:54)
[2016-03-26] MEDS ORDERED: ZANA4TAB PO (13:54)
[2016-03-26 16:00] VITALS: BP 142/86
--- NOTE | 2016-03-27 16:05 | DSES ---
DATE OF ADMISSION: 03/24/2016 DATE OF DISCHARGE: 03/26/2016 PRIMARY CARE PHYSICIAN: Kingston Castro in [place]. DISCHARGE DIAGNOSES: 1. Acute on chronic back pain. No organic etiology found. 2. Possible conversion disorder or somatization. 3. Chronic T8 vertebral fracture. 4. Mild disc bulges at the cervical and lumbar regions without canal or foraminal stenosis. 5. Cannot rule out malingering. 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 The patient has a history of chronic T8 vertebral fracture and was following with his orthopedic spinal surgeon, Dr. Baker, at the [facility], phone number [phone]. The patient had thoracic epidural injection number two at [facility] on 03/08, and since then, he has worsened hypersensitivity throughout his spine extending from the mid thoracic to the sacral region, with numbness on both the paraspinal regions. He also complained in increase in saddle numbness and left leg numbness and paresthesia. He also complained of one episode of urinary incontinence during sleep at home. Complained of inability to have erections and constipation. As per him, he has been timing himself to go to the bathroom every 3-4 hours so that he would not have any accidents. However, he complained of inability to sense the feeling of bladder and did not have any urge to urinate or any urge to have a bowel movement. He also complained that he could not feel the urine coming out or the stool coming out. He could not feel himself wiping his bottom also. In the emergency room, the patient had MRIs done, including MRI of the brain, cervical, thoracic, and lumbar spine, which did not reveal any cauda equina, did not reveal any spinal cord compression or any epidural or intracanal evidence of space-occupying mass or fluid collection. The patient also had an MRI of the thoracic spine with contrast, which did not show any spinal infarction. Cervical spine MRI showed C3 to C5 broad-based posterior disc bulge with no focal herniation. Thoracic spine MRI, as mentioned, showed chronic old T8 compression fracture with minimal height loss. There was also T9 to T11 mid-superior plate compression deformities without any edema, thought to be chronic. There was no canal or foraminal stenosis. The spinal canal demonstrated gross uniform signal intensity with no evidence of space-occupying mass or fluid collection. The lumbar spine MRI did not show any acute fracture, spondylolisthesis or any osseus lesion. There was broad-based disc bulges at L3 to S1 with no focal herniation. The spinal canal and neural foramina were patent. Brain MRI did not show any acute intracranial pathology. The patient was evaluated by pain management, and started on tizanidine, Soma, and Percocet as per their recommendations. The patient was also evaluated by neurology, and as per them, his symptoms did not match his clinical examination findings, as well as did not match the radiological findings, so it was felt that the patient may have conversion disorder or somatization disorder. They also could not rule out any underlying malingering. They recommended to continue with pain management and to be evaluated by psychiatry. The patient already had an electromyogram (EMG) and nerve conduction velocity (NCV) studies of the lower extremity done recently, which have been normal in the recent past, and as per them, did not need to be repeated. The patient already follows with mental health services at his post, and it was highly recommended that he keep on following with them. I spoke with Dr. Baker, his orthopedic spinal surgeon from [facility], who at this point did not feel that the patient needed to be transferred there for any further investigation or urgent surgical procedure. He, however, indicated that he would be happy to see the patient as an outpatient on 03/29/2016. This was conveyed to the patient. The patient did raise the concern that he was told not to sit or drive a car for more than 30 minutes; however, it was explained that the direction was only for the day when he had his epidural injections, but at this point, he could sit in a car without any issues. It was strongly urged that he should keep his appointment with his own spinal surgeon for further evaluation and any surgical procedure they would recommend. The patient does have chronic T8 vertebral fracture which he wanted to undergo surgery for that, and which is elective surgery as per his surgeon, so can followup in the outpatient. The patient was given prescriptions for pain medications, which were sent to his pharmacy of choice. At present, the patient is able to ambulate and has been seen by physical therapy and cleared from they aspect, so the patient has stable vital signs with pain reasonably well controlled with current pain medications. So the patient is going to be discharged home. PHYSICAL EXAMINATION: VITAL SIGNS: Temperature 98.5, pulse 96, respiratory rate 18, blood pressure 142/86, pulse oximetry 99% on room air. GENERAL: The patient awake, alert, and oriented times three, sitting up in bed in no acute distress. HEENT: Normocephalic, atraumatic. Moist mucous membranes. Anicteric eyes. CHEST: Clear to auscultation. CARDIOVASCULAR: S1, S2, regular. No rub, murmur or gallop. ABDOMEN: Soft, nontender. Bowel sounds present. EXTREMITIES: No edema. LABORATORY DATA: WBC 7.6, hemoglobin 14.7, platelets 200. Sodium 142, potassium 4.5, chloride 108, bicarbonate 26, BUN 12, creatinine 1.1, glucose 94, calcium 8.7. IMAGING: The patient has been given disk with all his MRIs on it. DISPOSITION: The patient is discharged home in stable condition. DISCHARGE INSTRUCTIONS: The patient to followup with his orthopedic surgeon, Dr. Baker, on 03/29/2016. Patient to followup with his primary care provider at [facility] before joining active duty. The patient is advised rest until he sees his spinal surgeon and further evaluation is done by them, and to follow their recommendation regarding his activity. DIET: Regular.
== END 2016-03-26 17:29 | disposition home or self-care (01) | DRG 552 ==
LOC: M ED 19:19 → M ED INP 03-24 01:07 → M PED 03-24 02:08
PROVIDERS: ADMIT Internal Medicine; ATTEND Internal Medicine Nephrology
DX: M54.5 Low back pain (principal); Z79.899 Other long term (current) drug therapy; F44.7 Conversion disorder with mixed symptom presentation; F45.0 Somatization disorder; Z76.5 Malingerer [conscious simulation]; F17.200 Nicotine dependence, unspecified, uncomplicated; M54.6 Pain in thoracic spine